=== PATIENT | male | born 1960 | race Two or more races ===

== ENCOUNTER 2016-06-19 08:34 | Inpatient (IN) | payer OTHER ==
[2016-06-19 08:42] VITALS: BMI 22.8
--- NOTE | 2016-06-19 09:09 | PDOC ---
History of Present Illness - General Chief Complaint: Chest Pain Stated Complaint: RAID RESPONSE Time Seen by Provider: 06/19/16 08:43 History Source: Patient - History of Present Illness Presenting Symptoms: Chest Pain, Dizziness Timing/Duration: reports: intermittent Severity/Quality: reports: moderate Chest Pain Radiation: reports: no radiation Past History - Past Medical History Allergies/Adverse Reactions: Allergies Allergy/AdvReac Type Severity Reaction Status Date / Time No Known Allergies Allergy Verified 06/19/16 08:36 Home Medications: Ambulatory Orders Unobtainable [Unobtainable] 06/19/16 Diabetes: Yes HTN: Yes Hypercholesterolemia: Yes - Immunization History Td Vaccination: (OVER 5 yrs) - Psycho/Social/Smoking Cessation Hx Anxiety: No Suicidal Ideation: No Smoking Status: No Smoking History: Never smoked Number of Cigarettes Smoked Daily: 0 Hx Alcohol Use: No Drug/Substance Use Hx: No Substance Use Type: None Review of Systems - Review of Systems Constitutional: No: Chills, Fever Respiratory: Yes: Shortness of Breath. No: Cough Cardiac (ROS): Yes: Chest Pain. No: Palpitations ABD/GI: No: Nausea, Vomiting Neurological: Yes: Dizziness *Physical Exam - Vital Signs Last Vital Signs Temp Pulse Resp BP Pulse Ox 97.5 F L 85 18 192/79 100 06/19/16 08:53 06/19/16 09:43 06/19/16 09:43 06/19/16 09:43 06/19/16 09:43 - Physical Exam Comments: 06/19/16 09:09 appears mildly anxious General Appearance: Yes: Appropriately Dressed HEENT: positive: Normal Voice Neck: positive: Supple Respiratory/Chest: positive: Lungs Clear, Normal Breath Sounds. negative: Respiratory Distress Cardiovascular: positive: Regular Rate, S1, S2 Gastrointestinal/Abdominal: positive: Soft. negative: Tender Extremity: positive: Normal Inspection. negative: Pedal Edema Integumentary: positive: Dry, Warm Neurologic: positive: Fully Oriented, Alert, Normal Mood/Affect Heart Score/ECG Review - History History: Highly suspicious - Electrocardiogram EKG: Normal - Age Age: 45-65 - Risk Factors Risk Factors Heart Score: Yes Hx Hypertension, Yes Hx Diabetes Based on the list above the patient has:: 1-2 risk factors - Troponin Troponin: </= normal limit - Score Heart Score - Total: 4 - ECG Intrepretation Comment:: 06/19/16 09:22 Twelve-lead EKG was performed and reviewed by me. There is normal sinus rhythm with a normal rate. The axis is normal. The intervals are normal. There are no ST or T wave abnormalities. Impression: Normal twelve-lead EKG ED Treatment Course - LABORATORY CBC & Chemistry Diagram: 06/19/16 08:40 06/19/16 08:40 - ADDITIONAL ORDERS Additional order review: Laboratory Results 06/19/16 06/19/16 06/19/16 08:40 08:40 08:40 Sodium 139 Potassium 4.6 Chloride 105 Carbon Dioxide 22 Anion Gap 12 BUN 34 H Creatinine 1.9 H Creat Clearance w eGFR 36.59 POC Glucometer Random Glucose 135 H Calcium 9.6 Total Bilirubin 0.4 AST 32 ALT 49 Alkaline Phosphatase 69 Creatine Kinase 864 H Creatine Kinase Index 1.0 CK-MB (CK-2) 8.723 H CK-MB (CK-2) Rel Index Cancelled Troponin I < 0.02 B-Natriuretic Peptide 62.37 Total Protein 7.3 Albumin 4.5 06/19/16 08:37 Sodium Potassium Chloride Carbon Dioxide Anion Gap BUN Creatinine Creat Clearance w eGFR POC Glucometer [phone] Random Glucose Calcium Total Bilirubin AST ALT Alkaline Phosphatase Creatine Kinase Creatine Kinase Index CK-MB (CK-2) CK-MB (CK-2) Rel Index Troponin I B-Natriuretic Peptide Total Protein Albumin 06/19/16 06/19/16 08:40 08:37 RBC 4.79 MCV 87.9 MCHC 33.4 RDW 14.2 MPV 9.2 Neutrophils % 72.8 Lymphocytes % 17.7 Monocytes % 8.4 Eosinophils % 0.8 Basophils % 0.3 POC Glucometer [phone] - RADIOLOGY Radiology Studies Ordered: Category Date Time Status CHEST X-RAY PORTABLE* [RAD] Stat Radiology 06/19/16 08:46 Completed - Medications Given in the ED: ED Medications Discontinued Medications Generic Name Dose Route Start Last Admin Trade Name Freq PRN Reason Stop Dose Admin Aspirin 325 mg 06/19/16 09:16 06/19/16 09:43 Asa - PO 06/19/16 09:17 325 mg ONCE ONE Administration Labetalol HCl 20 mg 06/19/16 09:21 06/19/16 09:43 Normodyne Injection - IVPUSH 06/19/16 09:22 20 mg ONCE ONE Administration Medical Decision Making - Medical Decision Making 06/19/16 09:04 56-year-old male, history of insulin-dependent diabetes, hypertension, presenting with chest pain. Patient works in the [employer] department at [employer], and states while at work this a.m. developed, non-radiating, left- sided chest pressure with an intensity of 7 out of 10 that has been intermittent w/ no exacerbating/alleviating factors. Also report numbness to LUE and ?sob and dizziness. Denies diaphoresis, nausea, vomiting, palpitations , leg pain or swelling. Patient states he's had similar pain in the past and had negative stress and cath 2 years ago at [facility]. 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 Follows up with Dr. Salomón Levin (PMD) See exam CP this am Currently resolved Appears anxious on eval and sig hypertensive Exam unremarkable otherwise R/o ACS -asa -manage BP (give home meds) -ekg -labs -cxr -dispo pending 06/19/16 10:[address] Gonzales and patient admitted to telemetry. As per M.D, Dr. Todd of cardiology should be consulted *DC/Admit/Observation/Transfer Diagnosis at time of Disposition: Chest pain Qualifiers: Chest pain type: unspecified Qualified Code(s): R07.9 - Chest pain, unspecified ARF (acute renal failure) Qualifiers: Acute renal failure type: unspecified Qualified Code(s): N17.9 - Acute kidney failure, unspecified - Discharge Dispostion Condition at time of disposition: Fair Admit: Yes Decision to Admit order Date/Time: Decision to Admit Order Category Date Time Status Decision to Admit to Hospital Routine Phy Order 06/19/16 10:19 Ordered - Referrals Referrals: Salomón Levin MD [Primary Care Provider] -
[2016-06-19 09:10] LABS: BASOPHIL 0.3 % (0-2.0); EOSINOPHIL 0.8 % (0-4.5); MCH 29.4 pg (25.7-33.7); MCHC 33.4 g/dl (32.0-35.9); MEAN CELL VOLUME 87.9 fl (80-96); MEAN PLT VOLUME 9.2 fl (7.5-11.1); NEUTROPHILS 72.8 % (42.8-82.8); PLATELET COUNT 287 K/MM3 (134-434); RDW 14.2 % (11.9-15.9); WHITE BLOOD COUNT 10.7 K/mm3 (4.0-10.0)
[2016-06-19] MEDS ORDERED: ASPIRIN 325 MG TABLET PO ONE (09:16)
[2016-06-19] MEDS ORDERED: LABETALOL HCL 5 MG/1 ML (100MG/20 ML VIAL) IVPUSH ONE (09:21)
[2016-06-19 09:24] LABS: ALBUMIN 4.5 g/dl (3.4-5.0); ANION GAP 12 (8-16); BILIRUBIN,TOTAL 0.4 mg/dL (0.2-1.0); CALCIUM 9.6 mg/dL (8.5-10.1); CO2 22 mmol/L (21-32); CREATININE 1.9 mg/dL (0.7-1.3); GLUCOSE,RANDOM 135 mg/dL (74-106); SGOT/AST 32 U/L (15-37); SGPT/ALT 49 U/L (12-78); TOT PROT 7.3 g/dl (6.4-8.2)
[2016-06-19 09:26] LABS: ALK PHOS 69 U/L (45-117); TROPONIN I < 0.02 ng/ml (0.00-0.05)
[2016-06-19] MEDS ORDERED: LABETALOL HCL 5 MG/1 ML (100MG/20 ML VIAL) ONE (09:37)
[2016-06-19] MEDS ORDERED: ASPIRIN 325 MG TABLET ONE (09:37)
[2016-06-19] MEDS ORDERED: SODIUM CHLORIDE 1,000 ML IV STA (09:43)
[2016-06-19] MEDS ORDERED: LABETALOL HCL 200 MG TABLET (FP) PO ONE (10:31)
[2016-06-19] MEDS ORDERED: LABETALOL HCL 100 MG TABLET (FP) ONE (10:43)
--- NOTE | 2016-06-19 11:28 | PN ---
Progress Note (short form) - Note Progress Note: Cardiology Consult Dictated 56M w/ DM, HTN rapid response called today in dietary for substernal chest pain. He reports 2 days of profound generalized fatigue. ECG with no acute changes. REC: Rule out acute coronary syndrome on telemetry with serial cardiac enzymes. ASA. Echo for EF assessment. Hydration, BUN and creatinine elevated in pre-renal pattern. Will start UFH gtts as we trend enzymes. Plan for ischemic evaluation prior to discharge, likely with cath when GFR stable. If enzymes +, will need to transferred on urgent basis.
[2016-06-19] MEDS ORDERED: HEPARIN NA (PORCINE) 5,000 UNITS/ML 1ML VIAL IVPUSH PRN ×2 (11:33)
--- NOTE | 2016-06-19 12:02 | CONS ---
DATE OF CONSULTATION: June 19, 2016 CARDIOLOGY CONSULTATION REQUESTING PHYSICIAN: Azul Gonzales M.D. REASON FOR CONSULTATION: Chest pain. HISTORY OF PRESENT ILLNESS: A 56-year-old male with hypertension, diabetes, and hyperlipidemia, former smoker, who developed chest pain today while at work. A rapid response was called in Dietary after the patient developed central substernal chest pressure radiating to the left arm, which lasted for approximately 5 to 10 minutes and resolved spontaneously. He is currently chest pain free and denies shortness of breath, palpitations, PND, or orthopnea. Over the last 2 days, he has felt profound exertional fatigue, but no chest pain. He reports having a cardiac angiogram several years, which was nonobstructive, and a nuclear stress test 2 years ago, which was unremarkable. Review of systems was otherwise comprehensively negative. PAST MEDICAL HISTORY: As above. 1. Insulin-dependent diabetes. 2. Hypertension. 3. Hyperlipidemia. MEDICATIONS: His home medications include: 1. Losartan 100 mg daily. 2. Lipitor 40 mg daily. 3. Norvasc 10 mg daily. 4. Lantus 45 units b.i.d. 5. Janumet. ALLERGIES: None. FAMILY HISTORY: Noncontributory. SOCIAL HISTORY: Former smoker. He works here at [employer] in [employer]. PHYSICAL EXAMINATION: Vital Signs: Afebrile with temperature of 97.5. Pulse of 83 and regular. Blood pressure on presentation to the emergency room of 192/79 and now down to 178/81 after receiving labetalol 20 mg intravenously x1 dose. Neck: No bruits. Heart: S1, S2, regular. No murmurs. Chest: Clear. Abdomen: Soft and nontender. Extremities: Warm, no edema. DIAGNOSTIC STUDIES: EKG showed normal sinus rhythm at 95 beats per minute with LVH and nonspecific ST changes. Chest x-ray was unremarkable. LABORATORY DATA: White count of 10.7, hematocrit of 42, and platelets of 287. Sodium of 139, potassium of 4.6, BUN of 34, and creatinine of 1.9. CK of 864, MB of 8.7, and troponin negative x1. BNP of 62. Upon review of previous records, there is a creatinine value from 2010 of 0.7, but none more recent than that. IMPRESSION: A 56-year-old male with multiple cardiac risk factors including diabetes, hypertension, and hyperlipidemia, with an episode of substernal chest pressure, concern for unstable angina. Presenting EKG is unremarkable. PLAN: 1. Rule out acute coronary syndrome on telemetry with serial cardiac enzymes. 2. Aspirin given. 3. Echocardiogram for ejection fraction assessment. 4. Begin home blood pressure medications, hold ARB due to CKD. Will initiate Metoprolol w/in next 24 hours (given Labetalol in ER). 5. Hydration, BUN and creatinine are elevated in a pre-renal pattern. 6. Will start unfractionated heparin drip as we trend cardiac enzymes. 7. We will plan for ischemic evaluation prior to discharge likely with cardiac catheterization when GFR is stable. 8. Initial CK elevated, TnI negative- will cycle enzymes. Elevated CK may be due to ACS as it is first to risk, although may also be non-specific and elevated due to skeletal muscle (chronic statin use). Hold statin for now pending clinical course. If enzymes are positive or if there is recurrent chest pain or EKG changes, then we will need to transfer on a more urgent basis for urgent cardiac catheterization. The above was discussed with the patient and the family. Thank you for the consultation. EVERARDO DIAZ M.D. [id number] MTDD
[2016-06-19] MEDS: HEPARIN - 25,000 UNIT in SODIUM CHLORIDE 495 ML IV SCH (12:27)
[2016-06-19] MEDS: amLODIPine BESYLATE 5 MG TABLET (FP) PO SCH (12:27)
[2016-06-19 12:55] LABS: TROPONIN I < 0.02 ng/ml (0.00-0.05)
[2016-06-19] MEDS: SODIUM CHLORIDE 1,000 ML IV SCH (13:24)
[2016-06-19] MEDS ORDERED: METOPROLOL TARTRATE 25 MG TABLET (FP) PO SCH (15:00)
[2016-06-19 16:36] LABS: CALCIUM 8.3 mg/dL (8.5-10.1); CREATININE 1.6 mg/dL (0.7-1.3)
[2016-06-19 19:34] LABS: TROPONIN I < 0.02 ng/ml (0.00-0.05)
--- NOTE | 2016-06-19 19:38 | HP ---
Admitting History and Physical - Admission Chief Complaint: Chest pain History of Present Illness: Pt is a 56-year-old male w/ a PMH significant for diabetes HTN and HLD. Pt initially presented to the ER bc of chest pain. The lt sided chest pain was nonradiating and possible associated w/ some LUE numbness. Pt denies any SOB or palpitations History Source: Patient - Past Medical History Cardiovascular: Yes: HTN, Hyperlipdemia Endocrine: Yes: Diabetes Mellitus - Past Surgical History Past Surgical History: Yes: None - Smoking History Smoking history: Never smoked Have you smoked in the past 12 months: No Aproximately how many cigarettes per day: 0 - Alcohol/Substance Use Hx Alcohol Use: No Home Medications - Allergies Allergies/Adverse Reactions: Allergies Allergy/AdvReac Type Severity Reaction Status Date / Time No Known Allergies Allergy Verified 07/13/16 07:17 - Home Medications Home Medications: Ambulatory Orders Aspirin [ASA -] 81 mg PO DAILY #0 tab.chew 06/23/16 Insulin (Levemir) [Levemir Vial] 45 units SQ BID@0700,2200 #0 ml 06/23/16 Isosorbide Mononitrate [Imdur -] 30 mg PO DAILY #0 tab.sr.24h 06/23/16 Metoprolol Succinate [Toprol XL -] 50 mg PO DAILY #0 tab.sr.24h 06/23/16 Oxycodone HCl/Acetaminophen [Percocet 5-325 mg Tablet] 1 - 2 tab PO Q6H PRN #12 tab MDD 4 07/12/16 Cyclobenzaprine HCl [Flexeril -] 10 mg PO TID #9 tablet 07/13/16 Ibuprofen [Motrin -] 800 mg PO Q6H #30 tablet 07/13/16 Nifedipine [Nifedical Xl] 60 mg PO DAILY 07/13/16 Family Disease History - Family Disease History Family History: Unremarkable Review of Systems - Review of Systems Constitutional: reports: No Symptoms Eyes: reports: No Symptoms HENT: reports: No Symptoms Neck: reports: No Symptoms Cardiovascular: reports: Chest Pain Respiratory: reports: No Symptoms Gastrointestinal: reports: No Symptoms Genitourinary: reports: No Symptoms Physical Examination Vital Signs: Vital Signs Temperature 98.2 F 06/19/16 16:55 Pulse Rate 76 06/19/16 16:55 Respiratory Rate 18 06/19/16 16:55 Blood Pressure 154/82 06/19/16 16:55 O2 Sat by Pulse Oximetry (%) 100 06/19/16 16:41 Constitutional: Yes: No Distress Eyes: Yes: WNL HENT: Yes: WNL Neck: Yes: Supple Cardiovascular: Yes: WNL, Regular Rate and Rhythm Respiratory: Yes: WNL, Regular, CTA Bilaterally Gastrointestinal: Yes: WNL, Normal Bowel Sounds, Soft Musculoskeletal: Yes: WNL Extremities: Yes: WNL Edema: No Neurological: Yes: WNL, Alert, Oriented ...Motor Strength: WNL Labs: CBC, BMP 06/19/16 15:15 Problem List - Problems (1) Chest pain Assessment/Plan: As per cardio Cont IV heparin/asa Code(s): R07.9 - CHEST PAIN, UNSPECIFIED Qualifiers: Chest pain type: unspecified Qualified Code(s): R07.9 - Chest pain, unspecified (2) Diabetes Code(s): E11.9 - TYPE 2 DIABETES MELLITUS WITHOUT COMPLICATIONS (3) HLD (hyperlipidemia) Code(s): E78.5 - HYPERLIPIDEMIA, UNSPECIFIED (4) HTN (hypertension) Code(s): I10 - ESSENTIAL (PRIMARY) HYPERTENSION
[2016-06-20] MEDS: SODIUM CHLORIDE 1,000 ML IV SCH (02:37)
[2016-06-20] MEDS: INSULIN SLIDING SCALE (NOVOLOG) 1 VIAL SQ SCH ×4 (06:13→21:29)
[2016-06-20] MEDS: INSULIN DETEMIR 100 UNITS/ML MDV SQ SCH ×2 (06:14→21:28)
[2016-06-20 07:39] LABS: BASOPHIL 0.4 % (0-2.0); EOSINOPHIL 2.6 % (0-4.5); MCH 29.8 pg (25.7-33.7); MCHC 33.9 g/dl (32.0-35.9); MEAN PLT VOLUME 9.3 fl (7.5-11.1); NEUTROPHILS 70.7 % (42.8-82.8); PLATELET COUNT 211 K/MM3 (134-434); RDW 14.1 % (11.9-15.9); WHITE BLOOD COUNT 7.2 K/mm3 (4.0-10.0)
[2016-06-20] MEDS: amLODIPine BESYLATE 5 MG TABLET (FP) PO SCH (09:00)
[2016-06-20] MEDS: ASPIRIN 81 MG CHEWABLE TABLETS PO SCH (09:00)
[2016-06-20 09:15] LABS: INR 0.96 (0.82-1.09); PROTHROMBIN TIME (PATIENT) 10.6 SEC (9.98-11.88)
[2016-06-20] MEDS ORDERED: METOPROLOL TARTRATE 25 MG TABLET (FP) PO SCH (10:00)
[2016-06-20] MEDS ORDERED: PT OWN MED DRAWER 7, Y5N ONE (10:23)
[2016-06-20] MEDS ORDERED: ACETAMINOPHEN 325 MG TABLET (FP) PO PRN (10:52)
[2016-06-20] MEDS: HEPARIN - 25,000 UNIT in SODIUM CHLORIDE 495 ML IV SCH (12:09)
[2016-06-20 12:14] LABS: ALBUMIN 3.4 g/dl (3.4-5.0); ALK PHOS 54 U/L (45-117); ANION GAP 7 (8-16); BILIRUBIN,TOTAL 0.4 mg/dL (0.2-1.0); CALCIUM 8.5 mg/dL (8.5-10.1); CO2 21 mmol/L (21-32); CREATININE 1.5 mg/dL (0.7-1.3); GLUCOSE,RANDOM 96 mg/dL (74-106); SGOT/AST 18 U/L (15-37); SGPT/ALT 33 U/L (12-78); TOT PROT 5.7 g/dl (6.4-8.2); TROPONIN I < 0.02 ng/ml (0.00-0.05)
--- NOTE | 2016-06-20 14:11 | PN ---
Progress Note, Physician Chief Complaint: Pt A&Ox3; had chest discomfort (moderate diffuse chest tightness) this morning for about 10 minutes; it went away on its own. History of Present Illness: 56M w/ DM, HTN rapid response called in dietary for substernal chest pain--> admission. He reports 2 days of profound generalized fatigue. ECG with no acute changes. - Current Medication List Current Medications: Active Medications Acetaminophen (Tylenol -) 650 mg PO Q6H PRN PRN Reason: FEVER OR PAIN Last Admin: 06/20/16 13:38 Dose: 650 mg Amlodipine Besylate (Norvasc -) 5 mg PO DAILY [facility] Last Admin: 06/20/16 09:00 Dose: 5 mg Aspirin (Asa -) 81 mg PO DAILY [facility] Last Admin: 06/20/16 09:00 Dose: 81 mg Heparin Sodium (Porcine) (Heparin -) 1,000 unit IVPUSH PRN PRN PRN Reason: Heparin Heparin Sodium (Porcine) (Heparin -) 5,000 unit IVPUSH PRN PRN PRN Reason: Heparin Heparin Sodium (Porcine) 25, (000 unit/ Sodium Chloride) 500 mls @ 18 mls/hr IV TITR BEL; 900 UNIT/HR PRN Reason: Protocol Last Admin: 06/20/16 12:09 Dose: 17 mls/hr Insulin Aspart (Novolog Vial Sliding Scale -) 1 vial SQ ACHS BEL PRN Reason: Protocol Last Admin: 06/20/16 12:09 Dose: Not Given Insulin Detemir (Levemir Vial) 45 units SQ BID@0700,2200 [facility] Last Admin: 06/20/16 06:14 Dose: 45 units Metoprolol Tartrate (Lopressor -) 25 mg PO DAILY [facility] Last Admin: 06/20/16 09:00 Dose: 25 mg - Objective Vital Signs: Vital Signs Temperature 97.5 F L 06/20/16 08:55 Pulse Rate 81 06/20/16 08:55 Respiratory Rate 18 06/20/16 09:00 Blood Pressure 153/84 06/20/16 08:55 O2 Sat by Pulse Oximetry (%) 98 06/20/16 09:00 Constitutional: Yes: Calm Eyes: Yes: WNL HENT: Yes: WNL Neck: Yes: WNL Cardiovascular: Yes: WNL Respiratory: Yes: WNL Gastrointestinal: Yes: Soft ...Rectal Exam: Yes: Deferred Genitourinary: No: Anuria Breast(s): Yes: WNL Musculoskeletal: Yes: WNL Extremities: Yes: WNL Edema: No Peripheral Pulses WNL: Yes Integumentary: Yes: WNL Neurological: Yes: WNL ...Motor Strength: WNL Psychiatric: Yes: WNL Labs: CBC, BMP 06/20/16 06:00 06/20/16 06:00 INR, PTT INR 0.96 (0.82-1.09) 06/20/16 08:40 - ....Imaging EKG: Image Reviewed (NSR; LVH) Problem List - Problems (1) ARF (acute renal failure) Assessment/Plan: BUN/Cr improving. Continue PO and IV fluids. Normal LVEF by ECHO. Code(s): N17.9 - ACUTE KIDNEY FAILURE, UNSPECIFIED Qualifiers: Acute renal failure type: unspecified Qualified Code(s): N17.9 - Acute kidney failure, unspecified (2) Chest pain Assessment/Plan: TNI < 0.02 x 2. EKG: NSR; LVH. NTG 0.4 mg sl prn for chest pain. BP control. For coronary artery evaluation. Code(s): R07.9 - CHEST PAIN, UNSPECIFIED Qualifiers: Chest pain type: unspecified Qualified Code(s): R07.9 - Chest pain, unspecified (3) Diabetes Assessment/Plan: Consider ACEI (DM; HTN) if renal status stabilizes. Code(s): E11.9 - TYPE 2 DIABETES MELLITUS WITHOUT COMPLICATIONS (4) HTN (hypertension) Assessment/Plan: Change to metoprolol ER for better 24 hours coverage; increase dose as needed. If renal functiion improves, start ACEI (HTN; DM; ACS; CHF). Code(s): I10 - ESSENTIAL (PRIMARY) HYPERTENSION
[2016-06-20] MEDS: METOPROLOL SUCCINATE 25 MG TAB.SR.24H (FP) PO SCH (14:59)
--- NOTE | 2016-06-20 16:18 | EKG ---
Test Reason : Blood Pressure : / mmHG Vent. Rate : 077 BPM Atrial Rate : 077 BPM P-R Int : 136 ms QRS Dur : 086 ms QT Int : 386 ms P-R-T Axes : 061 030 024 degrees QTc Int : 436 ms NORMAL SINUS RHYTHM MODERATE VOLTAGE CRITERIA FOR LVH, MAY BE NORMAL VARIANT BORDERLINE ECG WHEN COMPARED WITH ECG OF 19-JUN-2016 08:37, NONSPECIFIC T WAVE ABNORMALITY NOW EVIDENT IN INFERIOR LEADS Confirmed by PHILIPP ESQUIVEL, NELLIE ([id number]) on 06/20/2016 4:18:09 PM Referred By: Andrew THAO Confirmed By:NELLIE SEGAL MD
[2016-06-20] MEDS: NITROGLYCERIN SUBLINGUAL 1/150 0.4 MG TAB SL PRN ×2 (17:25→17:32)
[2016-06-20 19:56] LABS: THYROID STIMULATING HORMONE 0.47 uIU/ml (0.358-3.74)
--- NOTE | 2016-06-20 21:39 | PN ---
Progress Note, Physician History of Present Illness: No new change - Current Medication List Current Medications: Active Medications Acetaminophen (Tylenol -) 650 mg PO Q6H PRN PRN Reason: FEVER OR PAIN Last Admin: 06/20/16 13:38 Dose: 650 mg Amlodipine Besylate (Norvasc -) 5 mg PO DAILY [facility] Last Admin: 06/20/16 09:00 Dose: 5 mg Aspirin (Asa -) 81 mg PO DAILY [facility] Last Admin: 06/20/16 09:00 Dose: 81 mg Heparin Sodium (Porcine) (Heparin -) 1,000 unit IVPUSH PRN PRN PRN Reason: Heparin Heparin Sodium (Porcine) (Heparin -) 5,000 unit IVPUSH PRN PRN PRN Reason: Heparin Heparin Sodium (Porcine) 25, (000 unit/ Sodium Chloride) 500 mls @ 18 mls/hr IV TITR BEL; 900 UNIT/HR PRN Reason: Protocol Last Admin: 06/20/16 12:09 Dose: 17 mls/hr Insulin Aspart (Novolog Vial Sliding Scale -) 1 vial SQ ACHS [facility] PRN Reason: Protocol Last Admin: 06/20/16 21:29 Dose: Not Given Insulin Detemir (Levemir Vial) 45 units SQ BID@0700,2200 [facility] Last Admin: 06/20/16 21:28 Dose: Not Given Metoprolol Succinate (Toprol Xl -) 25 mg PO DAILY [facility] Last Admin: 06/20/16 14:59 Dose: 25 mg Nitroglycerin (Nitrostat -) 0.4 mg SL Q5M PRN PRN Reason: FOR CHEST PAIN Last Admin: 06/20/16 17:32 Dose: 0.4 mg - Objective Vital Signs: Vital Signs Temperature 98.1 F 06/20/16 15:08 Pulse Rate 73 06/20/16 15:08 Respiratory Rate 18 06/20/16 15:08 Blood Pressure 138/78 06/20/16 15:08 O2 Sat by Pulse Oximetry (%) 98 06/20/16 09:00 Neck: Yes: Supple Cardiovascular: Yes: WNL, Regular Rate and Rhythm Respiratory: Yes: WNL, Regular, CTA Bilaterally Gastrointestinal: Yes: WNL, Normal Bowel Sounds, Soft Labs: CBC, BMP 06/20/16 06:00 06/20/16 06:00 INR, PTT INR 0.96 (0.82-1.09) 06/20/16 08:40 Problem List - Problems (1) ARF (acute renal failure) Code(s): N17.9 - ACUTE KIDNEY FAILURE, UNSPECIFIED Qualifiers: Acute renal failure type: unspecified Qualified Code(s): N17.9 - Acute kidney failure, unspecified (2) Chest pain Code(s): R07.9 - CHEST PAIN, UNSPECIFIED Qualifiers: Chest pain type: unspecified Qualified Code(s): R07.9 - Chest pain, unspecified (3) Diabetes Code(s): E11.9 - TYPE 2 DIABETES MELLITUS WITHOUT COMPLICATIONS (4) HTN (hypertension) Code(s): I10 - ESSENTIAL (PRIMARY) HYPERTENSION
[2016-06-21] MEDS: INSULIN SLIDING SCALE (NOVOLOG) 1 VIAL SQ SCH ×4 (06:10→21:42)
[2016-06-21] MEDS: INSULIN DETEMIR 100 UNITS/ML MDV SQ SCH ×2 (06:10→21:19)
[2016-06-21 06:33] LABS: MCH 29.8 pg (25.7-33.7); MCHC 33.7 g/dl (32.0-35.9); MEAN CELL VOLUME 88.3 fl (80-96); MEAN PLT VOLUME 9.1 fl (7.5-11.1); PLATELET COUNT 212 K/MM3 (134-434); WHITE BLOOD COUNT 6.6 K/mm3 (4.0-10.0)
[2016-06-21] MEDS: amLODIPine BESYLATE 5 MG TABLET (FP) PO SCH (09:51)
[2016-06-21] MEDS: METOPROLOL SUCCINATE 25 MG TAB.SR.24H (FP) PO SCH (09:51)
[2016-06-21] MEDS: ASPIRIN 81 MG CHEWABLE TABLETS PO SCH (09:51)
[2016-06-21] MEDS: HEPARIN - 25,000 UNIT in SODIUM CHLORIDE 495 ML IV SCH (11:49)
--- NOTE | 2016-06-21 22:39 | PN ---
Progress Note, Physician History of Present Illness: No chest pain today - Current Medication List Current Medications: Active Medications Acetaminophen (Tylenol -) 650 mg PO Q6H PRN PRN Reason: FEVER OR PAIN Last Admin: 06/20/16 13:38 Dose: 650 mg Amlodipine Besylate (Norvasc -) 5 mg PO DAILY [facility] Last Admin: 06/21/16 09:51 Dose: 5 mg Aspirin (Asa -) 81 mg PO DAILY [facility] Last Admin: 06/21/16 09:51 Dose: 81 mg Heparin Sodium (Porcine) (Heparin -) 1,000 unit IVPUSH PRN PRN PRN Reason: Heparin Heparin Sodium (Porcine) (Heparin -) 5,000 unit IVPUSH PRN PRN PRN Reason: Heparin Heparin Sodium (Porcine) 25, (000 unit/ Sodium Chloride) 500 mls @ 18 mls/hr IV TITR BEL; 900 UNIT/HR PRN Reason: Protocol Last Admin: 06/21/16 11:49 Dose: 17 mls/hr Insulin Aspart (Novolog Vial Sliding Scale -) 1 vial SQ ACHS [facility] PRN Reason: Protocol Last Admin: 06/21/16 21:42 Dose: 2 units Insulin Detemir (Levemir Vial) 45 units SQ BID@0700,2200 [facility] Last Admin: 06/21/16 21:19 Dose: Not Given Metoprolol Succinate (Toprol Xl -) 25 mg PO DAILY [facility] Last Admin: 06/21/16 09:51 Dose: 25 mg Nitroglycerin (Nitrostat -) 0.4 mg SL Q5M PRN PRN Reason: FOR CHEST PAIN Last Admin: 06/20/16 17:32 Dose: 0.4 mg - Objective Vital Signs: Vital Signs Temperature 98.1 F 06/21/16 18:35 Pulse Rate 82 06/21/16 19:14 Respiratory Rate 18 06/21/16 19:14 Blood Pressure 161/84 06/21/16 19:14 O2 Sat by Pulse Oximetry (%) 98 06/21/16 09:00 Neck: Yes: Supple Cardiovascular: Yes: WNL, Regular Rate and Rhythm Respiratory: Yes: WNL, Regular, CTA Bilaterally Gastrointestinal: Yes: WNL, Normal Bowel Sounds, Soft Extremities: Yes: WNL Edema: No Labs: CBC, BMP 06/21/16 06:00 06/20/16 06:00 INR, PTT INR 0.96 (0.82-1.09) 06/20/16 08:40 Problem List - Problems (1) Chest pain Assessment/Plan: As per cardio Cont IV heparin/asa Code(s): R07.9 - CHEST PAIN, UNSPECIFIED Qualifiers: Chest pain type: unspecified Qualified Code(s): R07.9 - Chest pain, unspecified (2) ARF (acute renal failure) Assessment/Plan: Check labs in am Code(s): N17.9 - ACUTE KIDNEY FAILURE, UNSPECIFIED Qualifiers: Acute renal failure type: unspecified Qualified Code(s): N17.9 - Acute kidney failure, unspecified (3) Diabetes Code(s): E11.9 - TYPE 2 DIABETES MELLITUS WITHOUT COMPLICATIONS (4) HTN (hypertension) Code(s): I10 - ESSENTIAL (PRIMARY) HYPERTENSION
[2016-06-21] MEDS ORDERED: METOPROLOL SUCCINATE 25 MG TAB.SR.24H (FP) PO ONE (23:00)
--- NOTE | 2016-06-22 01:29 | PN ---
Progress Note, Physician Chief Complaint: Pt A&Ox3; asked for sl NTG once last night for chest discomfort. History of Present Illness: 56M w/ DM, HTN rapid response called in dietary for substernal chest pain--> admission. He reports 2 days of profound generalized fatigue. ECG with no acute changes. - Current Medication List Current Medications: Active Medications Acetaminophen (Tylenol -) 650 mg PO Q6H PRN PRN Reason: FEVER OR PAIN Last Admin: 06/20/16 13:38 Dose: 650 mg Amlodipine Besylate (Norvasc -) 5 mg PO DAILY [facility] Last Admin: 06/21/16 09:51 Dose: 5 mg Aspirin (Asa -) 81 mg PO DAILY [facility] Last Admin: 06/21/16 09:51 Dose: 81 mg Heparin Sodium (Porcine) (Heparin -) 1,000 unit IVPUSH PRN PRN PRN Reason: Heparin Heparin Sodium (Porcine) (Heparin -) 5,000 unit IVPUSH PRN PRN PRN Reason: Heparin Heparin Sodium (Porcine) 25, (000 unit/ Sodium Chloride) 500 mls @ 18 mls/hr IV TITR BEL; 900 UNIT/HR PRN Reason: Protocol Last Admin: 06/21/16 11:49 Dose: 17 mls/hr Insulin Aspart (Novolog Vial Sliding Scale -) 1 vial SQ ACHS [facility] PRN Reason: Protocol Last Admin: 06/21/16 21:42 Dose: 2 units Insulin Detemir (Levemir Vial) 45 units SQ BID@0700,2200 [facility] Last Admin: 06/21/16 21:19 Dose: Not Given Metoprolol Succinate (Toprol Xl -) 50 mg PO DAILY [facility] Nitroglycerin (Nitrostat -) 0.4 mg SL Q5M PRN PRN Reason: FOR CHEST PAIN Last Admin: 06/20/16 17:32 Dose: 0.4 mg - Objective Vital Signs: Vital Signs Temperature 98.1 F 06/21/16 18:35 Pulse Rate 82 06/21/16 19:14 Respiratory Rate 18 06/21/16 19:14 Blood Pressure 161/84 06/21/16 19:14 O2 Sat by Pulse Oximetry (%) 98 06/21/16 09:00 Constitutional: Yes: Calm Eyes: Yes: WNL HENT: Yes: WNL Neck: Yes: WNL Cardiovascular: Yes: WNL Respiratory: Yes: WNL Gastrointestinal: Yes: WNL ...Rectal Exam: Yes: Deferred Genitourinary: No: Anuria Breast(s): Yes: WNL Musculoskeletal: Yes: WNL Extremities: Yes: WNL Edema: No Peripheral Pulses WNL: Yes Integumentary: Yes: WNL Neurological: Yes: WNL ...Motor Strength: WNL Psychiatric: Yes: WNL Labs: CBC, BMP 06/21/16 06:00 06/20/16 06:00 INR, PTT INR 0.96 (0.82-1.09) 06/20/16 08:40 Abnormal Lab Results 06/21/16 06:00 PTT (Actin FS) 64.3 H Problem List - Problems (1) ARF (acute renal failure) Assessment/Plan: Continue PO and IV fluids. F/u Is and Os, BUN/Cr. Code(s): N17.9 - ACUTE KIDNEY FAILURE, UNSPECIFIED Qualifiers: Acute renal failure type: unspecified Qualified Code(s): N17.9 - Acute kidney failure, unspecified (2) Chest pain Assessment/Plan: TNI < 0.02 x 2. EKG: NSR; LVH. NTG 0.4 mg sl prn for chest pain; consider starting Imdur 30 mg daily. BP control. For coronary artery evaluation. Code(s): R07.9 - CHEST PAIN, UNSPECIFIED Qualifiers: Chest pain type: unspecified Qualified Code(s): R07.9 - Chest pain, unspecified (3) Diabetes Assessment/Plan: Consider ACEI (DM; HTN) if renal status stabilizes. Code(s): E11.9 - TYPE 2 DIABETES MELLITUS WITHOUT COMPLICATIONS (4) HTN (hypertension) Assessment/Plan: Change to metoprolol ER for better 24 hours coverage; increase dose as needed. If renal function improves, start ACEI (HTN; DM; ACS; CHF). Code(s): I10 - ESSENTIAL (PRIMARY) HYPERTENSION
[2016-06-22] MEDS: INSULIN DETEMIR 100 UNITS/ML MDV SQ SCH ×2 (06:10→21:33)
[2016-06-22] MEDS: INSULIN SLIDING SCALE (NOVOLOG) 1 VIAL SQ SCH ×4 (06:14→21:32)
[2016-06-22 08:09] LABS: BASOPHIL 0.3 % (0-2.0); EOSINOPHIL 2.6 % (0-4.5); MCH 29.7 pg (25.7-33.7); MCHC 34.3 g/dl (32.0-35.9); MEAN CELL VOLUME 86.8 fl (80-96); MEAN PLT VOLUME 9.1 fl (7.5-11.1); NEUTROPHILS 64.5 % (42.8-82.8); PLATELET COUNT 218 K/MM3 (134-434); RDW 13.7 % (11.9-15.9); WHITE BLOOD COUNT 6.2 K/mm3 (4.0-10.0)
[2016-06-22 08:39] LABS: ALBUMIN 3.5 g/dl (3.4-5.0); BILIRUBIN,TOTAL 0.4 mg/dL (0.2-1.0); CALCIUM 8.8 mg/dL (8.5-10.1); CREATININE 1.4 mg/dL (0.7-1.3); TOT PROT 6.1 g/dl (6.4-8.2)
[2016-06-22] MEDS: ASPIRIN 81 MG CHEWABLE TABLETS PO SCH (08:59)
[2016-06-22] MEDS ORDERED: NIFEdipine E.R. 30 MG TABLET (FP) PO SCH (09:00)
[2016-06-22] MEDS: METOPROLOL SUCCINATE 50 MG TAB.SR.24H (FP) PO SCH (09:14)
[2016-06-22] MEDS: ISOSORBIDE MONONITRATE 30 MG TAB.SR.24H (FP) PO SCH (09:14)
--- NOTE | 2016-06-22 10:37 | PN ---
Progress Note, Physician History of Present Illness: seen and examined today in [facility]. intermittent episodes of chest pain over the weekend, improved with NTG. - Current Medication List Current Medications: Active Medications Acetaminophen (Tylenol -) 650 mg PO Q6H PRN PRN Reason: FEVER OR PAIN Last Admin: 06/20/16 13:38 Dose: 650 mg Aspirin (Asa -) 81 mg PO DAILY [facility] Last Admin: 06/22/16 08:59 Dose: 81 mg Heparin Sodium (Porcine) (Heparin -) 1,000 unit IVPUSH PRN PRN PRN Reason: Heparin Heparin Sodium (Porcine) (Heparin -) 5,000 unit IVPUSH PRN PRN PRN Reason: Heparin Heparin Sodium (Porcine) 25, (000 unit/ Sodium Chloride) 500 mls @ 18 mls/hr IV TITR BEL; 900 UNIT/HR PRN Reason: Protocol Last Admin: 06/21/16 11:49 Dose: 17 mls/hr Insulin Aspart (Novolog Vial Sliding Scale -) 1 vial SQ ACHS [facility] PRN Reason: Protocol Last Admin: 06/22/16 06:14 Dose: 2 units Insulin Detemir (Levemir Vial) 45 units SQ BID@0700,2200 [facility] Last Admin: 06/22/16 06:10 Dose: Not Given Isosorbide Mononitrate (Imdur -) 30 mg PO DAILY [facility] Last Admin: 06/22/16 09:14 Dose: 30 mg Metoprolol Succinate (Toprol Xl -) 50 mg PO DAILY [facility] Last Admin: 06/22/16 09:14 Dose: 50 mg Nifedipine (Procardia Xl -) 30 mg PO DAILY [facility] Last Admin: 06/22/16 08:59 Dose: 30 mg Nitroglycerin (Nitrostat -) 0.4 mg SL Q5M PRN PRN Reason: FOR CHEST PAIN Last Admin: 06/20/16 17:32 Dose: 0.4 mg - Objective Vital Signs: Vital Signs Temperature 97.7 F 06/22/16 02:07 Pulse Rate 68 06/22/16 02:07 Respiratory Rate 18 06/22/16 02:07 Blood Pressure 148/73 06/22/16 02:07 O2 Sat by Pulse Oximetry (%) 98 06/21/16 21:00 Constitutional: Yes: Well Nourished, No Distress, Calm Eyes: Yes: WNL, Conjunctiva Clear, EOM Intact, PERRL HENT: Yes: WNL, Atraumatic, Normocephalic Neck: Yes: WNL, Supple, Trachea Midline Cardiovascular: Yes: WNL, Regular Rate and Rhythm, S1, S2. No: Bradycardia, Tachycardia, Pulse Irregular, Bruit, JVD, Gallop, Murmur, Rub, S3, S4, Varicosities Respiratory: Yes: WNL, Regular, CTA Bilaterally. No: Rales, Rhonchi, Wheezes Gastrointestinal: Yes: WNL, Normal Bowel Sounds, Soft. No: Distention, Tenderness Musculoskeletal: Yes: WNL Extremities: Yes: WNL Edema: No Peripheral Pulses WNL: Yes Peripheral Pulses: Left Doralis Pedis: 2+, Right Dorsalis Pedis: 2+ Integumentary: Yes: WNL Neurological: Yes: WNL, Alert, Oriented, Cran Nerves II-XII Intact ...Motor Strength: WNL Psychiatric: Yes: WNL, Alert, Oriented Labs: CBC, BMP 06/22/16 07:08 06/22/16 07:08 INR, PTT INR 0.96 (0.82-1.09) 06/20/16 08:40 - ....Imaging Chest X-ray: Report Reviewed, Image Reviewed EKG: Report Reviewed, Image Reviewed Other: Report Reviewed, Image Reviewed (tele-nsr, no events recorded) Problem List - Problems (1) ARF (acute renal failure) Code(s): N17.9 - ACUTE KIDNEY FAILURE, UNSPECIFIED Qualifiers: Acute renal failure type: unspecified Qualified Code(s): N17.9 - Acute kidney failure, unspecified (2) Chest pain Code(s): R07.9 - CHEST PAIN, UNSPECIFIED Qualifiers: Chest pain type: unspecified Qualified Code(s): R07.9 - Chest pain, unspecified (3) Diabetes Code(s): E11.9 - TYPE 2 DIABETES MELLITUS WITHOUT COMPLICATIONS (4) HTN (hypertension) Code(s): I10 - ESSENTIAL (PRIMARY) HYPERTENSION (5) HLD (hyperlipidemia) Code(s): E78.5 - HYPERLIPIDEMIA, UNSPECIFIED (6) Unstable angina Code(s): I20.0 - UNSTABLE ANGINA Assessment/Plan 56 year old man with a history of HTN, DMII, HLD admitted with episodes of chest pain and generalized fatigue. Chest pain-concerning for unstable angina -responded to NTG SL -cardiac enzymes wnl -echo showed normal LV systolic function, mild mr, mild tr, mild conc LVH -as he still has intermittent episodes of chest pain will cont heparin gtt for now -creat has trended down -plan for transfer for cardiac cath tomorrow am to [facility] -holding metformin for upcoming cath -cont ASA 81mg daily -will load plavix 300mg x 1 then cont 75mg daily -start statin -cont toprol xl 50mg daily -start Imdur 30mg daily HTN-above goal -cont toprol xl 50mg daily -change amlodipine to nifedipine xl 30mg daily and uptitrate as needed -avoid SABRINA-I/ARB and HCTZ for now given elevated creatinine on admission and concern for intravascular depletion as source
[2016-06-22] MEDS ORDERED: CLOPIDOGREL BISULFATE 300 MG TABLET PO ONE (11:00)
[2016-06-22] MEDS ORDERED: INSULIN (NOVOLOG) ASPART 100 UNITS/ML 10ML VIAL ONE (11:29)
[2016-06-22] MEDS: HEPARIN - 25,000 UNIT in SODIUM CHLORIDE 495 ML IV SCH (11:45)
--- NOTE | 2016-06-22 20:01 | PN ---
Progress Note, Physician History of Present Illness: No NEW COMPLAINTS - Current Medication List Current Medications: Active Medications Acetaminophen (Tylenol -) 650 mg PO Q6H PRN PRN Reason: FEVER OR PAIN Last Admin: 06/20/16 13:38 Dose: 650 mg Aspirin (Asa -) 81 mg PO DAILY [facility] Last Admin: 06/22/16 08:59 Dose: 81 mg Atorvastatin Calcium (Lipitor -) 80 mg PO HS [facility] Clopidogrel Bisulfate (Plavix -) 75 mg PO DAILY [facility] Heparin Sodium (Porcine) (Heparin -) 1,000 unit IVPUSH PRN PRN PRN Reason: Heparin Heparin Sodium (Porcine) (Heparin -) 5,000 unit IVPUSH PRN PRN PRN Reason: Heparin Heparin Sodium (Porcine) 25, (000 unit/ Sodium Chloride) 500 mls @ 18 mls/hr IV TITR BEL; 900 UNIT/HR PRN Reason: Protocol Last Admin: 06/22/16 11:45 Dose: 17 mls/hr Insulin Aspart (Novolog Vial Sliding Scale -) 1 vial SQ ACHS [facility] PRN Reason: Protocol Last Admin: 06/22/16 17:18 Dose: 6 units Insulin Detemir (Levemir Vial) 45 units SQ BID@0700,2200 [facility] Last Admin: 06/22/16 06:10 Dose: Not Given Isosorbide Mononitrate (Imdur -) 30 mg PO DAILY [facility] Last Admin: 06/22/16 09:14 Dose: 30 mg Metoprolol Succinate (Toprol Xl -) 50 mg PO DAILY [facility] Last Admin: 06/22/16 09:14 Dose: 50 mg Nifedipine (Procardia Xl -) 30 mg PO BID [facility] Nitroglycerin (Nitrostat -) 0.4 mg SL Q5M PRN PRN Reason: FOR CHEST PAIN Last Admin: 06/20/16 17:32 Dose: 0.4 mg - Objective Vital Signs: Vital Signs Temperature 97.9 F 06/22/16 15:00 Pulse Rate 74 06/22/16 15:00 Respiratory Rate 18 06/22/16 15:00 Blood Pressure 130/77 06/22/16 15:00 O2 Sat by Pulse Oximetry (%) 98 06/22/16 10:00 Cardiovascular: Yes: WNL, Regular Rate and Rhythm Respiratory: Yes: WNL, Regular, CTA Bilaterally Gastrointestinal: Yes: WNL, Normal Bowel Sounds, Soft Labs: CBC, BMP 06/22/16 07:08 06/22/16 07:08 INR, PTT INR 0.96 (0.82-1.09) 06/20/16 08:40 Problem List - Problems (1) Chest pain Assessment/Plan: As per cardio Cont IV heparin/asa Code(s): R07.9 - CHEST PAIN, UNSPECIFIED Qualifiers: Chest pain type: unspecified Qualified Code(s): R07.9 - Chest pain, unspecified (2) ARF (acute renal failure) Code(s): N17.9 - ACUTE KIDNEY FAILURE, UNSPECIFIED Qualifiers: Acute renal failure type: unspecified Qualified Code(s): N17.9 - Acute kidney failure, unspecified (3) Diabetes Code(s): E11.9 - TYPE 2 DIABETES MELLITUS WITHOUT COMPLICATIONS (4) HTN (hypertension) Code(s): I10 - ESSENTIAL (PRIMARY) HYPERTENSION
[2016-06-22] MEDS: NIFEdipine E.R. 30 MG TABLET (FP) PO SCH (21:34)
[2016-06-22] MEDS ORDERED: ATORVASTATIN CA 80 MG TABLET (FP) PO SCH (22:00)
[2016-06-23 07:13] LABS: MCH 29.7 pg (25.7-33.7); MCHC 34.3 g/dl (32.0-35.9); MEAN CELL VOLUME 86.6 fl (80-96); MEAN PLT VOLUME 9.1 fl (7.5-11.1); PLATELET COUNT 194 K/MM3 (134-434); RDW 13.7 % (11.9-15.9); WHITE BLOOD COUNT 6.7 K/mm3 (4.0-10.0)
[2016-06-23] MEDS: ISOSORBIDE MONONITRATE 30 MG TAB.SR.24H (FP) PO SCH (09:16)
[2016-06-23] MEDS: METOPROLOL SUCCINATE 50 MG TAB.SR.24H (FP) PO SCH (09:16)
[2016-06-23] MEDS: NIFEdipine E.R. 30 MG TABLET (FP) PO SCH (09:16)
[2016-06-23] MEDS: ASPIRIN 81 MG CHEWABLE TABLETS PO SCH (09:16)
[2016-06-23] MEDS: INSULIN SLIDING SCALE (NOVOLOG) 1 VIAL SQ SCH ×3 (09:39→16:43)
[2016-06-23] MEDS: INSULIN DETEMIR 100 UNITS/ML MDV SQ SCH (09:39)
--- NOTE | 2016-06-23 09:57 | PN ---
Progress Note, Physician Chief Complaint: still having chest discomfort: describes 06/16 Remains on heparin - Current Medication List Current Medications: Active Medications Acetaminophen (Tylenol -) 650 mg PO Q6H PRN PRN Reason: FEVER OR PAIN Last Admin: 06/20/16 13:38 Dose: 650 mg Aspirin (Asa -) 81 mg PO DAILY [facility] Last Admin: 06/23/16 09:16 Dose: 81 mg Atorvastatin Calcium (Lipitor -) 80 mg PO HS [facility] Last Admin: 06/22/16 21:32 Dose: 80 mg Clopidogrel Bisulfate (Plavix -) 75 mg PO DAILY [facility] Last Admin: 06/23/16 09:16 Dose: 75 mg Heparin Sodium (Porcine) (Heparin -) 1,000 unit IVPUSH PRN PRN PRN Reason: Heparin Heparin Sodium (Porcine) (Heparin -) 5,000 unit IVPUSH PRN PRN PRN Reason: Heparin Heparin Sodium (Porcine) 25, (000 unit/ Sodium Chloride) 500 mls @ 18 mls/hr IV TITR BEL; 900 UNIT/HR PRN Reason: Protocol Last Admin: 06/22/16 11:45 Dose: 17 mls/hr Insulin Aspart (Novolog Vial Sliding Scale -) 1 vial SQ ACHS [facility] PRN Reason: Protocol Last Admin: 06/23/16 09:39 Dose: Not Given Insulin Detemir (Levemir Vial) 45 units SQ BID@0700,2200 [facility] Last Admin: 06/23/16 09:39 Dose: Not Given Isosorbide Mononitrate (Imdur -) 30 mg PO DAILY [facility] Last Admin: 06/23/16 09:16 Dose: 30 mg Metoprolol Succinate (Toprol Xl -) 50 mg PO DAILY [facility] Last Admin: 06/23/16 09:16 Dose: 50 mg Nifedipine (Procardia Xl -) 30 mg PO BID [facility] Last Admin: 06/23/16 09:16 Dose: 30 mg Nitroglycerin (Nitrostat -) 0.4 mg SL Q5M PRN PRN Reason: FOR CHEST PAIN Last Admin: 06/20/16 17:32 Dose: 0.4 mg - Objective Vital Signs: Vital Signs Temperature 98.1 F 06/23/16 06:00 Pulse Rate 76 06/23/16 06:00 Respiratory Rate 20 06/23/16 06:00 Blood Pressure 149/72 06/23/16 06:00 O2 Sat by Pulse Oximetry (%) 98 06/22/16 21:00 Constitutional: Yes: No Distress Eyes: Yes: Conjunctiva Clear Cardiovascular: Yes: Regular Rate and Rhythm Respiratory: Yes: CTA Bilaterally Gastrointestinal: Yes: Soft Edema: No Neurological: Yes: Alert Labs: CBC, BMP 06/23/16 05:35 06/22/16 07:08 INR, PTT INR 0.96 (0.82-1.09) 06/20/16 08:40 Laboratory Tests 06/22/16 06/23/16 06/23/16 07:08 05:35 05:35 WBC 6.7 Hct 37.2 Plt Count 194 PTT (Actin FS) 67.6 H Potassium 4.4 Creatinine 1.4 H - ....Imaging EKG: Image Reviewed (NSR) Assessment/Plan Assessment/Plan 56 year old man with a history of HTN, DMII, HLD admitted with episodes of chest pain and generalized fatigue. Chest pain-concerning for unstable angina -responded to NTG SL -cardiac enzymes wnl -echo showed normal LV systolic function, mild mr, mild tr, mild conc LVH -as he still has intermittent episodes of chest pain will cont heparin gtt for now -creat has trended down -plan for transfer for cardiac cath today at [facility] -holding metformin for upcoming cath -cont ASA 81mg daily and plavix HTN-above goal -cont toprol xl 50mg daily -avoid SABRINA-I/ARB and HCTZ for now given elevated creatinine on admission and concern for intravascular depletion as source
[2016-06-23] MEDS ORDERED: CLOPIDOGREL BISULFATE 75 MG TABLET (FP) PO SCH (10:00)
[2016-06-23 10:49] VITALS: PULSE 87
[2016-06-23 12:08] LABS: CALCIUM 8.7 mg/dL (8.5-10.1); CREATININE 1.5 mg/dL (0.7-1.3); MAGNESIUM 2.1 mg/dL (1.8-2.4)
[2016-06-23] MEDS: HEPARIN - 25,000 UNIT in SODIUM CHLORIDE 495 ML IV SCH (12:52)
[2016-06-23 15:43] VITALS: BP 148/81; TEMP 98.1
--- NOTE | 2016-06-24 11:59 | EKG ---
Test Reason : Blood Pressure : / mmHG Vent. Rate : 095 BPM Atrial Rate : 095 BPM P-R Int : 130 ms QRS Dur : 072 ms QT Int : 344 ms P-R-T Axes : 057 019 066 degrees QTc Int : 432 ms NORMAL SINUS RHYTHM MINIMAL VOLTAGE CRITERIA FOR LVH, MAY BE NORMAL VARIANT NONSPECIFIC ST AND T WAVE ABNORMALITY ABNORMAL ECG WHEN COMPARED WITH ECG OF 24-SEP-2010 13:16, NON-SPECIFIC CHANGE IN ST SEGMENT IN LATERAL LEADS T WAVE INVERSION NO LONGER EVIDENT IN INFERIOR LEADS T WAVE AMPLITUDE HAS INCREASED IN ANTERIOR LEADS NONSPECIFIC T WAVE ABNORMALITY NOW EVIDENT IN LATERAL LEADS Confirmed by ALESSIO ESQUIVEL, HEIDI ([id number]) on 06/24/2016 11:58:49 AM Referred By: Confirmed By:HEIDI MCCALLUM MD
== END 2016-06-23 18:30 | disposition short-term general hospital (02) | DRG 311 ==
LOC: JER 08:34 → UNDOADMIN 10:23 → JERBED 10:23 → J4S 10:54 → JERBED 10:54 → J4S 22:53
PROVIDERS: ADMIT Internal Medicine; ATTEND Internal Medicine
DX: I20.0 Unstable angina (principal); N17.9 Acute kidney failure, unspecified; R07.9 Chest pain, unspecified; I10 Essential (primary) hypertension; E11.9 Type 2 diabetes mellitus without complications; E78.5 Hyperlipidemia, unspecified
CPT/HCPCS: 36415; 71010-TC; 80048; 80053; 80061; 82550; 82553; 83721; 83735; 83880; 84443; 84484; 85025; 85027; 85610; 85730; 93005; 93010; 93306-TC; 99284-25; J1644

== ENCOUNTER 2016-07-12 14:14 | Emergency (ER) | payer OTHER ==
[2016-07-12 14:20] VITALS: BP 153/71; PULSE 78; TEMP 98; BMI 20.3
--- NOTE | 2016-07-12 15:23 | PDOC ---
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 Patient states yesterday symptoms increase. Patient states was getting off the bus and when he stood up he felt a sharp shock like pain down his right leg that lasted for a few seconds and felt as if his leg gave out. Patient states took Motrin last night with minimal affect and then again this morning secondary to pain worsened with standing. 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 Occurred: reports: other (months) Severity: reports: moderate Pain Location: reports: back, lower extremity Method of Injury: Yes: unknown Associated Symptoms (Fall): trouble walking (due to right leg pain) Past History - Past Medical History Allergies/Adverse Reactions: Allergies Allergy/AdvReac Type Severity Reaction Status Date / Time No Known Allergies Allergy Verified 07/12/16 14:20 Home Medications: Ambulatory Orders Acetaminophen [Tylenol .Regular Strength -] 650 mg PO Q6H PRN #0 tablet Aspirin [ASA -] 81 mg PO DAILY #0 tab.chew 06/23/16 Insulin (Levemir) [Levemir Vial] 45 units SQ BID@0700,2200 #0 ml 06/23/16 Isosorbide Mononitrate [Imdur -] 30 mg PO DAILY #0 tab.sr.24h 06/23/16 Metoprolol Succinate [Toprol XL -] 50 mg PO DAILY #0 tab.sr.24h 06/23/16 Diabetes: Yes HTN: Yes Hypercholesterolemia: Yes - Immunization History Td Vaccination: (OVER 5 yrs) - Psycho/Social/Smoking Cessation Hx Anxiety: No Suicidal Ideation: No Smoking Status: No Smoking History: Never smoked Have you smoked in the past 12 months: No Number of Cigarettes Smoked Daily: 0 Information on smoking cessation initiated: No Hx Alcohol Use: No Drug/Substance Use Hx: No Substance Use Type: None Hx Substance Use Treatment: No Patient Lives Alone: No Lives with/in: spouse/SO Trauma Specific PMHX - Complaint Specific PMHX Arthritis: No Back Injury: No Neck Injury: No Hx Sacro Iliac Joint Dysfunction: No Review of Systems - Review of Systems Able to Perform ROS?: Yes Constitutional: No: Symptoms Reported HEENTM: No: Symptoms Reported Respiratory: No: Symptoms reported Cardiac (ROS): No: Symptoms Reported ABD/GI: No: Symptoms Reported : No: Symptoms Reported Musculoskeletal: Yes: Back Pain, Muscle Pain Integumentary: No: Symptoms Reported Neurological: No: Tingling Endocrine: No: Symptoms Reported Hematologic/Lymphatic: No: Symptoms Reported *Physical Exam - Vital Signs Last Vital Signs Temp Pulse Resp BP Pulse Ox 98 F 78 18 153/71 100 07/12/16 14:15 07/12/16 14:15 07/12/16 14:15 07/12/16 14:15 07/12/16 14:15 - Physical Exam General Appearance: Yes: Nourished, Appropriately Dressed. No: Apparent Distress HEENT: negative: Pale Conjunctivae Respiratory/Chest: positive: Lungs Clear, Normal Breath Sounds. negative: Respiratory Distress, Accessory Muscle Use Cardiovascular: positive: Regular Rhythm, Regular Rate. negative: Murmur Gastrointestinal/Abdominal: positive: Soft. negative: Tenderness Musculoskeletal: negative: CVA Tenderness, Vertebral Tenderness (no midline tenderness no paraspinous muscle tenderness) Extremity: positive: Normal Capillary Refill, Normal Inspection, Tender (over rt buttock/rt sciatica). negative: Normal Range of Motion, Pedal Edema Integumentary: positive: Normal Color, Warm, Moist. negative: Swelling Neurologic: positive: Normal Mood/Affect, Motor Strength 5/5 (ambulatory) ED Treatment Course - RADIOLOGY Radiology Studies Ordered: Category Date Time Status SPINE-LUMBAR ONLY [RAD] Stat Radiology 07/12/16 15:09 Ordered Medical Decision Making - Medical Decision Making 07/12/16 15:27 Patient with low back pain now radiating down his right leg for the past few months. Patient states pain is worsened with standing. Patient has no complaints of weakness, sensory changes, incontinence, or saddle anesthesia patient with likely sciatica based on clinical exam. Patient ordered for x-ray of the lower back. 07/12/16 15:53 X-ray shows pelvic calcification noted over the sacrum. The lateral view show straightening with minimal degenerative changes and wedging. There is no sign of blastic or lytic lesions or fracture or subluxation. There is mention of a minimal Schmorl node formation at the base of L5 vertebral body. Patient will be given Percocet and orthopedist referral *DC/Admit/Observation/Transfer Diagnosis at time of Disposition: Pain in lower extremity due to sciatica - Discharge Dispostion Disposition: HOME Condition at time of disposition: Good - Referrals Referrals: Bernardo To MD [Staff Physician] - - Patient Instructions Printed Discharge Instructions: DI for Sciatica, Sciatica (Alternative Therapy) Additional Instructions: I recommend taking Percocet as needed for severe pain. Otherwise may take regular strength Tylenol. Please read over information I have enclosed and follow up with referred orthopedist.
[2016-07-12] MEDS ORDERED: OXYCODONE/APAP 5/325MG COMBO TABLET PO ONE (15:53)
[2016-07-12] MEDS ORDERED: OXYCODONE/APAP 5/325MG COMBO TABLET ONE (15:57)
== END 2016-07-12 15:59 | disposition home or self-care (01) ==
LOC: JERFT 14:14
DX: M54.41 Lumbago with sciatica, right side (principal); I10 Essential (primary) hypertension; E11.9 Type 2 diabetes mellitus without complications; Z79.4 Long term (current) use of insulin; E78.00 Pure hypercholesterolemia, unspecified
CPT/HCPCS: 72100-TC; 99281-25

== ENCOUNTER 2016-07-13 06:59 | Emergency (ER) | payer OTHER ==
[2016-07-13 07:17] VITALS: TEMP 97.8; BMI 20.3
[2016-07-13] MEDS ORDERED: KETOROLAC TROMETHAMINE 60 MG/2 ML VIAL IM ONE (08:03)
[2016-07-13] MEDS ORDERED: diazePAM 5 MG TABLET PO ONE (08:03)
[2016-07-13] MEDS ORDERED: KETOROLAC TROMETHAMINE 60 MG/2 ML VIAL ONE (08:09)
[2016-07-13] MEDS ORDERED: diazePAM 5 MG TABLET ONE (08:10)
--- NOTE | 2016-07-13 08:11 | PDOC ---
History of Present Illness - General History Source: Patient - History of Present Illness Occurred: reports: other Pain Location: reports: lower extremity <Lorenzo Mayo Last Filed: 07/13/16 10:09> <Kaden Teresa - Last Filed: 07/14/16 09:36> - General Chief Complaint: Pain, Acute Stated Complaint: PAIN RIGHT LEG - NUMB Time Seen by Provider: 07/13/16 07:47 Past History - Past Medical History Diabetes: Yes HTN: Yes Hypercholesterolemia: Yes - Immunization History Td Vaccination: (OVER 5 yrs) - Psycho/Social/Smoking Cessation Hx Anxiety: No Suicidal Ideation: No Smoking Status: No Smoking History: Never smoked Have you smoked in the past 12 months: No Number of Cigarettes Smoked Daily: 0 Hx Alcohol Use: No Drug/Substance Use Hx: No Substance Use Type: None Hx Substance Use Treatment: No <Elle Mayo Filed: 07/13/16 10:09> <Kaden Teresa - Last Filed: 07/14/16 09:36> - Past Medical History Allergies/Adverse Reactions: Allergies Allergy/AdvReac Type Severity Reaction Status Date / Time No Known Allergies Allergy Verified 07/13/16 07:17 Home Medications: Ambulatory Orders Aspirin [ASA -] 81 mg PO DAILY #0 tab.chew 06/23/16 Insulin (Levemir) [Levemir Vial] 45 units SQ BID@0700,2200 #0 ml 06/23/16 Isosorbide Mononitrate [Imdur -] 30 mg PO DAILY #0 tab.sr.24h 06/23/16 Metoprolol Succinate [Toprol XL -] 50 mg PO DAILY #0 tab.sr.24h 06/23/16 Oxycodone HCl/Acetaminophen [Percocet 5-325 mg Tablet] 1 - 2 tab PO Q6H PRN #12 tab MDD 4 07/12/16 Cyclobenzaprine HCl [Flexeril -] 10 mg PO TID #9 tablet 07/13/16 Ibuprofen [Motrin -] 800 mg PO Q6H #30 tablet 07/13/16 Nifedipine [Nifedical Xl] 60 mg PO DAILY 07/13/16 Trauma Specific PMHX - Complaint Specific PMHX Arthritis: No Back Injury: No Neck Injury: No Hx Sacro Iliac Joint Dysfunction: No <James Mayo - Last Filed: 07/13/16 10:09> Review of Systems - Review of Systems Neurological: Yes: Numbness. No: Tingling, Weakness <GaelJames - Last Filed: 07/13/16 10:09> *Physical Exam - Vital Signs Last Vital Signs Temp Pulse Resp BP Pulse Ox 97.8 F 77 16 187/80 98 07/13/16 07:13 07/13/16 07:13 07/13/16 07:13 07/13/16 07:13 07/13/16 07:13 - Physical Exam General Appearance: Yes: Appropriately Dressed, Moderate Distress HEENT: positive: Normal Voice Neck: positive: Supple Respiratory/Chest: negative: Respiratory Distress Extremity: positive: Normal Inspection, Normal Range of Motion, Other (pt limping in ED). negative: Tender Integumentary: positive: Dry, Warm Neurologic: positive: Fully Oriented, Alert, Normal Mood/Affect. negative: Sensory Deficit <James Mayo Last Filed: 07/13/16 10:09> - Vital Signs Last Vital Signs Temp Pulse Resp BP Pulse Ox 97.8 F 66 18 159/67 100 07/13/16 07:13 07/13/16 10:43 07/13/16 10:43 07/13/16 10:43 07/13/16 10:43 <Kaden Teresa - Last Filed: 07/14/16 09:36> ED Treatment Course - Medications Given in the ED: ED Medications Discontinued Medications Generic Name Dose Route Start Last Admin Trade Name Collette PRN Reason Stop Dose Admin Diazepam 5 mg 07/13/16 08:03 07/13/16 08:21 Valium - PO 07/13/16 08:04 5 mg ONCE ONE Administration Ketorolac Tromethamine 60 mg 07/13/16 08:03 07/13/16 08:20 Toradol Injection - IM 07/13/16 08:04 60 mg ONCE ONE Administration <Kaden Teresa - Last Filed: 07/14/16 09:36> Medical Decision Making - Medical Decision Making 07/13/16 08:05 56-year-old male, history of hyperlipidemia, hypertension and diabetes, presenting with severe pain to right lower extremity. Patient reports pain to right hip that radiates down posterior aspect of right thigh and leg that has been intermittent for 1 month. Was seen in ED yesterday for same, had an x-ray showing pelvic calcification and some lumbosacral DJD. Patient was sent home with Percocet, which he says he has not had a chance to fill. States pain has since worsened and that last night for the first time, he experienced numbness of entire right lower extremity. Denies lower extremity weakness, saddle anesthesia or bowel or bladder incontinence. Patient also reports lower back pain that has been on and off x 6 months. 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 See exam Chronic LBP now w/ RLE pain and numbness M/l sciatica Limbing in ED 2/2 pain, neg SLR and no s/o cauda equina -pain control/reassess -anticipate discharge w. spine f/u 07/13/16 08:11 07/13/16 10:11 07/13/16 09:54 Pt reports significant improvement in symptoms, able to move more swiftly in ED and now able to bear weight on the right. Will discharge w pain meds and give referral for metrology specialist 07/13/16 10:19 <James Mayo - Last Filed: 07/13/16 10:09> - Medical Decision Making 07/14/16 09:36 The patient was seen and evaluated in conjunction with [facility] Lloyd under my direct supervision, ancillary studies were reviewed. I agree with the plan as outlined by ANUP Mayo . <Kaden Teresa - Last Filed: 07/14/16 09:36> *DC/Admit/Observation/Transfer <James Mayo - Last Filed: 07/13/16 10:09> <Kaden Teresa - Last Filed: 07/14/16 09:36> Diagnosis at time of Disposition: Sciatica Qualifiers: Laterality: right Qualified Code(s): M54.31 - Sciatica, right side - Discharge Dispostion Disposition: HOME Condition at time of disposition: Improved - Prescriptions Prescriptions: Cyclobenzaprine HCl [Flexeril -] 10 mg PO TID #9 tablet Ibuprofen [Motrin -] 800 mg PO Q6H #30 tablet - Referrals Referrals: Salomón Levin MD [Primary Care Provider] - Tom Mallory MD [Staff Physician] - - Patient Instructions Additional Instructions: Take medications as directed and follow up with Dr Mallory of neurosurgery. Please return for worsening of symptoms such as weakness of our leg, not being able to feel your groin or not being able to control your bowel or bladder - Post Discharge Activity Work/School Note: Back to Work
[2016-07-13 10:44] VITALS: BP 159/67; PULSE 66
== END 2016-07-13 10:44 | disposition home or self-care (01) ==
LOC: JER 06:59
PROC: 3E0233Z Introduction of Anti-inflammatory into Muscle, Percutaneous Approach (ICD-10-PCS; principal; 2016-07-13)
DX: M54.31 Sciatica, right side (principal); E78.5 Hyperlipidemia, unspecified; I10 Essential (primary) hypertension; E11.9 Type 2 diabetes mellitus without complications; Z79.4 Long term (current) use of insulin
CPT/HCPCS: 99282-25

== ENCOUNTER 2019-03-05 09:43 | Emergency (ER) | payer OTHER ==
[2019-03-05 09:46] VITALS: TEMP 98.1; BMI 20.5
[2019-03-05 10:52] LABS: BASO % 0.3 % (0-2.0); EOS % 0.6 % (0-4.5); HEMATOCRIT 40.2 % (35.4-49); HEMOGLOBIN 13.5 GM/dL (11.7-16.9); LYMPH % 9.6 % (8-40); MCH 28.3 pg (25.7-33.7); MCHC 33.7 g/dl (32.0-35.9); MEAN CELL VOLUME 84.1 fl (80-96); MEAN PLT VOLUME 9.5 fl (7.5-11.1); MONO % 7.1 % (3.8-10.2); NEUT % 82.4 % (42.8-82.8); PLATELET COUNT 159 K/MM3 (134-434); RBC 4.78 M/mm3 (4.00-5.60); RDW 13.8 % (11.9-15.9); WHITE BLOOD COUNT 8.3 K/mm3 (4.0-10.0)
--- NOTE | 2019-03-05 11:05 | PDOC ---
History of Present Illness - General Chief Complaint: Pain Stated Complaint: PAIN Time Seen by Provider: 03/05/19 10:06 History Source: Patient Exam Limitations: Clinical Condition - History of Present Illness Initial Comments: 03/05/19 11:01 Patient with history of diabetes, hypertension and hyperlipidemia present with complaint of chest tightness upon wake this morning and with cough. Patient reported dry cough and chest tightness when he coughs on the left side. Patient report sensation of chest pressure on the left side. Denies shortness of breath , tingling or numbness sensation, fever, chills, dizziness, nausea or vomiting. Denies any other symptoms. Denies smoking Is this a multiple visit Asthma Patient?: No Timing/Duration: 4-6 hours Past History - Past Medical History Allergies/Adverse Reactions: Allergies Allergy/AdvReac Type Severity Reaction Status Date / Time No Known Allergies Allergy Verified 03/05/19 09:46 Home Medications: Ambulatory Orders Aspirin [ASA -] 81 mg PO DAILY #0 tab.chew 06/23/16 Insulin (Levemir) [Levemir Vial] 45 units SQ BID@0700,2200 #0 ml 06/23/16 Isosorbide Mononitrate [Imdur -] 30 mg PO DAILY #0 tab.sr.24h 06/23/16 Metoprolol Succinate [Toprol XL -] 50 mg PO DAILY #0 tab.sr.24h 06/23/16 Oxycodone HCl/Acetaminophen [Percocet 5-325 mg Tablet] 1 - 2 tab PO Q6H PRN #12 tab MDD 4 07/12/16 Cyclobenzaprine HCl [Flexeril -] 10 mg PO TID #9 tablet 07/13/16 Ibuprofen [Motrin -] 800 mg PO Q6H #30 tablet 07/13/16 Nifedipine [Nifedical Xl] 60 mg PO DAILY 07/13/16 Benzonatate [Tessalon Pearls -] 100 mg PO Q8H PRN #21 capsule 03/05/19 Methylprednisolone [Medrol Dose Melo] 4 mg PO ASDIR #21 tablet 03/05/19 COPD: No Diabetes: Yes HTN: Yes Hypercholesterolemia: Yes - Immunization History Td Vaccination: (OVER 5 yrs) - Psycho Social/Smoking Cessation Hx Smoking Status: No Smoking History: Never smoked Have you smoked in the past 12 months: No Number of Cigarettes Smoked Daily: 0 Hx Alcohol Use: No Drug/Substance Use Hx: No Substance Use Type: None Hx Substance Use Treatment: No Review of Systems - Review of Systems Able to Perform ROS?: Yes Is the patient limited Iranian proficient: No Constitutional: No: Chills, Fever, Malaise HEENTM: No: Symptoms Reported, See HPI, Eye Pain, Blurred Vision, Tearing, Recent change in vision, Double Vision, Cataracts, Ear Pain, Ocular Prothesis, Ear Discharge, Nose Pain, Nose Congestion, Tinnitus, Nose Bleeding, Hearing Loss , Throat Pain, Throat Swelling, Mouth Pain, Dental Problems, Difficulty Swallowing, Mouth Swelling, Other Respiratory: Yes: Symptoms reported, See HPI, Cough (intermittent). No: Orthopnea, Shortness of Breath, SOB with Exertion, SOB at Rest, Stridor, Wheezing, Productive cough, Hemoptysis, Other Cardiac (ROS): Yes: Symptoms Reported, See HPI, Chest Tightness (on left side). No: Chest Pain, Edema, Irregular Heart Rate, Lightheadedness, Palpitations, Syncope, Other ABD/GI: No: Symptoms Reported, Abdominal Distended, Constipated, Diarrhea, Nausea, Vomiting, Abdominal cramping Musculoskeletal: No: Symptoms Reported Integumentary: No: Symptoms Reported Neurological: No: Symptoms reported, Headache, Numbness, Seizure, Dizziness All Other Systems: Reviewed and Negative *Physical Exam - Vital Signs Last Vital Signs Temp Pulse Resp BP Pulse Ox 98.1 F 102 H 18 183/88 H 99 03/05/19 09:45 03/05/19 09:45 03/05/19 09:45 03/05/19 09:45 03/05/19 09:45 - Physical Exam Comments: 03/05/19 11:04 GENERAL: Well developed, well nourished. Awake and alert. No acute distress. HEENT: Normocephalic, atraumatic. PERRLA, EOMI. No conjunctival pallor. Sclera are non-icteric. Moist mucous membranes. Oropharynx is clear. NECK: Supple. Full ROM. CARDIOVASCULAR: Regular rate and rhythm. No murmurs, rubs, or gallops. Distal pulses are 2+ and symmetric. PULMONARY: No evidence of respiratory distress. Lungs clear to auscultation bilaterally. No wheezing, rales or rhonchi. ABDOMINAL: Soft. Non-tender. Non-distended. No rebound or guarding. No organomegaly. Normoactive bowel sounds. MUSCULOSKELETAL Normal range of motion at all joints. EXTREMITIES: No cyanosis. No clubbing. No edema. SKIN: Warm and dry. Normal capillary refill. No rashes. NEUROLOGICAL: Alert, awake, appropriate. Gait is normal without ataxia. PSYCHIATRIC: Cooperative. Good eye contact. Appropriate mood General Appearance: Yes: Nourished, Appropriately Dressed. No: Apparent Distress ED Treatment Course - LABORATORY CBC & Chemistry Diagram: 03/05/19 10:41 03/05/19 10:41 - ADDITIONAL ORDERS Additional order review: 03/05/19 10:41 RBC 4.78 MCV 84.1 MCHC 33.7 RDW 13.8 MPV 9.5 Neutrophils % 82.4 D Lymphocytes % 9.6 D Monocytes % 7.1 Eosinophils % 0.6 Basophils % 0.3 - RADIOLOGY Radiology Studies Ordered: Category Date Time Status CHEST PA & LAT [RAD] Stat Radiology 03/05/19 10:33 Completed Medical Decision Making - Medical Decision Making 03/05/19 11:03 Patient with history of diabetes, hypertension and hyperlipidemia present with complaint of chest tightness upon wake this morning and with cough. Patient reported dry cough and chest tightness when he coughs on the left side. Patient report sensation of chest pressure on the left side. Denies shortness of breath , tingling or numbness sensation, fever, chills, dizziness, nausea or vomiting. Denies any other symptoms. Denies smoking Clinical exam unremarkable with lungs clear to auscultation. Patient no acute distress. Normal cardio exam. Patient afebrile. Symptoms likely viral URI with bronchospasm versus less likely cardiogenic symptoms. EKG shows normal sinus rhythm. Chest x-ray ordered to rule out acute chest pathology. CBC, CMP and cardiac profile lab ordered. Treat based on lab and imaging results 03/05/19 13:28 CBC, CMP and troponins negative. Chest x-ray shows no acute infiltrate or pathology. Repeat cardiac profile lab in 3 hours for confirmative tests. Patient report still feels chest tightness. duoneb with albuterol/atrovent ordered. 03/05/19 14:38 Repeat troponin is negative. Patient reported improvement with chest tightness after DuoNeb. Patient is stable for discharge on Tessalon Perles when necessary for cough and Medrol Melo for bronchospasm with advised to follow-up with PCP as soon as possible in the next 2-3 days. Patient with elevated BUN/CR levels and advised to follow up with urology as he was away all mildly elevated kidney labs in the past but no diagnosis of renal failure. Patient voice understanding and will follow-up with urologist tomorrow. 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 ARF (acute renal failure) Qualifiers: Acute renal failure type: unspecified Qualified Code(s): N17.9 - Acute kidney failure, unspecified Condition: Stable Disposition: HOME - Admission No - Additional Discharge Information Prescriptions: Benzonatate [Tessalon Pearls -] 100 mg PO Q8H PRN #21 capsule PRN Reason: Cough Methylprednisolone [Medrol Dose Melo] 4 mg PO ASDIR #21 tablet - Follow up/Referral Referrals: Salomón Levin MD [Primary Care Provider] - Marvel Levi MD [Staff Physician] - - Patient Discharge Instructions Patient Printed Discharge Instructions: DI for Atypical Chest Pain Additional Instructions: Your EKG and heart labs shows no indication of acute heart attack. Your chest x- rays is normal. Your symptoms is likely caused by upper respiratory viral infection causing bronchospasm. Your kidney labs are abnormal and needs to be followed up. Follow up with referred urologist as soon as possible. Come back to ED if worsening chest pain, shortness of breathe, dizziness - Post Discharge Activity Work/Back to School Note: Back to Work
[2019-03-05 11:23] LABS: ALBUMIN 3.2 g/dl (3.4-5.0); ALK PHOS 86 U/L (45-117); ANION GAP 10 MMOL/L (8-16); BILIRUBIN,TOTAL 0.4 mg/dL (0.2-1); BLOOD UREA NITROGEN 38.7 mg/dL (7-18); CALCIUM 8.3 mg/dL (8.5-10.1); CHLORIDE 99 mmol/L (98-107); CO2 28 mmol/L (21-32); CREATININE 2.1 mg/dL (0.55-1.3); GLUCOSE,RANDOM 246 mg/dL (74-106); POTASSIUM 3.8 mmol/L (3.5-5.1); SGOT/AST 22 U/L (15-37); SGPT/ALT 37 U/L (13-61); SODIUM 138 mmol/L (136-145); TOT PROT 6.6 g/dl (6.4-8.2)
[2019-03-05] MEDS ORDERED: ALBUTEROL SO4 2.5/IPRATROPIUM 0.5 INH SOL 3 ML VIAL.NEB. NEB ONE ×2 (13:41→13:53)
[2019-03-05 14:44] VITALS: BP 158/78; PULSE 89
--- NOTE | 2019-03-05 16:44 | EKG ---
Test Reason : Blood Pressure : / mmHG Vent. Rate : 091 BPM Atrial Rate : 091 BPM P-R Int : 136 ms QRS Dur : 086 ms QT Int : 368 ms P-R-T Axes : 044 009 008 degrees QTc Int : 452 ms NORMAL SINUS RHYTHM POSSIBLE LEFT ATRIAL ENLARGEMENT LEFT VENTRICULAR HYPERTROPHY NONSPECIFIC T WAVE ABNORMALITY ABNORMAL ECG WHEN COMPARED WITH ECG OF 20-JUN-2016 09:11, NO SIGNIFICANT CHANGE WAS FOUND Confirmed by LESLY ESQUIVEL, MANISHA ([id number]) on 03/05/2019 4:44:45 PM Referred By: Confirmed By:MANISHA GRACE MD
== END 2019-03-05 14:44 | disposition home or self-care (01) ==
LOC: JER 09:43
PROC: 3E0F7GC Introduction of Other Therapeutic Substance into Respiratory Tract, Via Natural or Artificial Opening (ICD-10-PCS; principal; 2019-03-05)
DX: R07.81 Pleurodynia (principal); R07.1 Chest pain on breathing; E11.9 Type 2 diabetes mellitus without complications; Z79.4 Long term (current) use of insulin; N17.9 Acute kidney failure, unspecified; I10 Essential (primary) hypertension; E78.5 Hyperlipidemia, unspecified
CPT/HCPCS: 36415; 71046-TC-FY; 80053; 82550; 82553; 84484; 85025; 93005; 93010; 99283-25

== ENCOUNTER 2019-05-30 06:30 | Emergency (ER) | payer OTHER ==
[2019-05-30 06:50] VITALS: BP 165/79; PULSE 69; TEMP 98.1; BMI 20.5
[2019-05-30] MEDS ORDERED: DIPHTH,PERTUSS(ACELL),TET 0.5 ML DISP.SYRIN IM ONE ×2 (07:26→07:30)
[2019-05-30] MEDS ORDERED: ACETAMINOPHEN 500 MG TABLET (FP) PO ONE (07:31)
--- NOTE | 2019-05-30 07:31 | PDOC ---
History of Present Illness - General Chief Complaint: Injury Stated Complaint: HEAD LAC Time Seen by Provider: 05/30/19 07:14 History Source: Patient Exam Limitations: No Limitations - History of Present Illness Initial Comments: 05/30/19 07:32 58yM w PMHx DM HTN HLD on anticoagulation presenting w head injury s/p mechanical fall. 625a today sitting on edge of bench in locker room while changing clothes, slid forward on bench, hit posterior head on bench edge. No LOC, vision change, chest pain, SOB, vomiting. Mild headache now. On blood thinner. Last tdap >5yrs ago. Past History - Past Medical History Allergies/Adverse Reactions: Allergies Allergy/AdvReac Type Severity Reaction Status Date / Time No Known Allergies Allergy Verified 05/30/19 06:50 Home Medications: Ambulatory Orders Aspirin [ASA -] 81 mg PO DAILY #0 tab.chew 06/23/16 Isosorbide Mononitrate [Imdur -] 30 mg PO DAILY #0 tab.sr.24h 06/23/16 Metoprolol Succinate [Toprol XL -] 50 mg PO DAILY #0 tab.sr.24h 06/23/16 Nifedipine [Nifedical Xl] 60 mg PO DAILY 07/13/16 Insulin (Levemir) [Levemir Vial] 55 units SQ HS 05/30/19 Metformin HCl [Glucophage] 500 mg PO DAILY 05/30/19 Sitagliptin Phosphate [Januvia] 1 tab PO DAILY 05/30/19 COPD: No Diabetes: Yes HTN: Yes Hypercholesterolemia: Yes - Immunization History Td Vaccination: (OVER 5 yrs) - Psycho Social/Smoking Cessation Hx Smoking Status: No Smoking History: Never smoked Have you smoked in the past 12 months: No Number of Cigarettes Smoked Daily: 0 Hx Alcohol Use: No Drug/Substance Use Hx: No Substance Use Type: None Hx Substance Use Treatment: No Trauma Specific PMHX - Complaint Specific PMHX Arthritis: No Back Injury: No Neck Injury: No Hx Sacro Iliac Joint Dysfunction: No Review of Systems - Review of Systems Constitutional: No: Chills, Fever HEENTM: No: Eye Pain, Recent change in vision, Nose Pain, Throat Pain, Mouth Pain Respiratory: No: Cough, Shortness of Breath Cardiac (ROS): No: Chest Pain, Palpitations, Syncope ABD/GI: No: Abdominal Distended, Constipated, Diarrhea, Nausea, Vomiting : No: Burning, Dysuria, Hematuria Musculoskeletal: No: Back Pain, Neck Pain Integumentary: No: Bruising, Flushing, Lesions Neurological: Yes: Headache. No: Numbness, Seizure, Tingling Psychiatric: No: Anxiety, Depression Endocrine: No: Excessive Sweating, Flushing, Intolerance to Cold, Intolerance to Heat Hematologic/Lymphatic: No: Anemia, Blood Clots *Physical Exam - Vital Signs Last Vital Signs Temp Pulse Resp BP Pulse Ox 98.1 F 69 20 165/79 99 05/30/19 06:30 05/30/19 06:30 05/30/19 06:30 05/30/19 06:30 05/30/19 06:30 - Physical Exam General Appearance: Yes: Nourished, Appropriately Dressed. No: Apparent Distress HEENT: positive: EOMI, ROBERTO, Normal Voice, Hearing Grossly Normal. negative: Scleral Icterus (R), Scleral Icterus (L), Nasal Congestion, Rhinorrhea Neck: positive: Supple. negative: Tender, Rigid, Decreased range of motion Respiratory/Chest: positive: Lungs Clear, Normal Breath Sounds. negative: Chest Tender, Respiratory Distress, Crackles, Rales, Rhonchi, Stridor, Wheezing Cardiovascular: positive: Regular Rhythm, Regular Rate, S1, S2. negative: Edema , Murmur Extremity: positive: Normal Capillary Refill Integumentary: positive: Normal Color Neurologic: positive: inside sales trainer II-XII NML intact, Fully Oriented, Alert, Normal Mood/ Affect, Normal Response, Motor Strength 5/5, Responsive. negative: Facial Droop , Numbness, Sensory Deficit, Confused, Disoriented ED Treatment Course - RADIOLOGY Radiology Studies Ordered: Category Date Time Status HEAD CT WITHOUT CONTRAST [CT] Stat CT Scan 05/30/19 07:24 Ordered Medical Decision Making - Medical Decision Making 05/30/19 07:30 58yM w PMHx DM HTN HLD on anticoagulation presenting w head injury s/p mechanical fall. Head CT did not show acute bleed/infarct/fx. Covered abrasion w bacitracin, given tdap, tylenol. DC home Discharge - Discharge Information Problems reviewed: Yes Clinical Impression/Diagnosis: Head injury due to trauma Qualifiers: Encounter type: initial encounter Qualified Code(s): S09.90XA - Unspecified injury of head, initial encounter Condition: Good Disposition: HOME - Admission No - Follow up/Referral Referrals: Salomón Levin MD [Primary Care Provider] - - Patient Discharge Instructions Patient Printed Discharge Instructions: Closed Head Injury Additional Instructions: You were seen for head injury after falling. Your head scan does not show anything concerning. You were given bacitracin. Take tylenol if you have a headache. Come back to the ED if you have vision change, vomiting, or worsening pain. - Post Discharge Activity
[2019-05-30] MEDS ORDERED: ACETAMINOPHEN 325 MG TABLET (FP) ONE (07:34)
[2019-05-30] MEDS ORDERED: BACITRACIN 15 GM TUBE TOPICAL OINTMENT TP ONE (07:35)
[2019-05-30] MEDS ORDERED: BACITRACIN 0.9 GM PACKET ONE (07:42)
--- NOTE | 2019-05-30 08:41 | PDOC ---
Attending Attestation - Resident Resident Name: Kory Méndez - ED Attending Attestation I have performed the following: I have examined & evaluated the patient, The case was reviewed & discussed with the resident, I agree w/resident's findings & plan - HPI HPI: 05/30/19 08:37 58-year-old male with history of hypertension, employee of [employer], presents with scalp abrasion. Patient was seated on the edge of a bench, slipped off and struck the back of his head on the bench. No other injuries, head did not hit the floor, denies any generalized headache but reports some scalp pain near the lesion. No vision change/speech change/nausea/vomiting/focal deficit. No other pain. Patient states he takes a blood thinner, unclear of the name or the indication. - Physicial Exam PE: 05/30/19 08:39 Vital signs stable Well-appearing, horizontal 2 cm superficial abrasion to the occipital scalp. No hematoma or bogginess or bony deformity. NEURO: Mental status: The patient is alert and oriented x3. Cranial nerves: Cranial nerves II through XII are intact Motor: The upper extremities are 5 over 5 in all muscle groups. The lower extremities are 5 over 5 in all muscle groups. No pronator drift. Sensation: Sensation is intact to light touch throughout. Cerebellar: Shjafc-soetkq-maja is normal in both upper extremities. Heel-knee- hernandez is normal in both lower extremities. Reflexes: 2+ and symmetric in the upper and lower extremities. Gait: Normal. Heel and toe walking are normal. Tandem gait is normal. - Medical Decision Making 05/30/19 08:39 58-year-old male with minor occipital head injury and scalp abrasion, neurologically intact without other red flags on history or physical exam other than possibly being on a blood thinner. Tetanus updated CT head performed and within normal limits Wound care, discharge, understands return criteria
== END 2019-05-30 08:21 | disposition home or self-care (01) ==
LOC: JER 06:30
DX: S00.01XA Abrasion of scalp, initial encounter (principal); W01.198A Fall on same level from slipping, tripping and stumbling with subsequent striking against other object, initial encounter; Y93.89 Activity, other specified; Y92.238 Other place in hospital as the place of occurrence of the external cause; Y99.0 Civilian activity done for income or pay; I10 Essential (primary) hypertension; E78.5 Hyperlipidemia, unspecified; E11.9 Type 2 diabetes mellitus without complications; Z79.4 Long term (current) use of insulin; Z79.01 Long term (current) use of anticoagulants
CPT/HCPCS: 70450-TC; 90715; 99281-25

== ENCOUNTER 2021-05-11 09:44 | Emergency (ER) | payer OTHER ==
[2021-05-11 09:50] VITALS: BP 183/86; PULSE 84; TEMP 98; BMI 19.3
== END 2021-05-11 12:29 | disposition home or self-care (01) ==
LOC: JER 09:44
DX: R04.0 Epistaxis (principal)
CPT/HCPCS: 99282-25

== ENCOUNTER 2021-08-30 20:39 | Emergency (ER) | payer OTHER ==
[2021-08-30 20:47] VITALS: TEMP 97.8; BMI 22.0
[2021-08-30] MEDS ORDERED: ACETAMINOPHEN 325 MG TABLET (FP) PO ONE (23:11)
[2021-08-30] MEDS ORDERED: AMOX TR/POT CLAV 875MG/125MG TABLETS (FP) PO ONE (23:11)
[2021-08-30] MEDS ORDERED: ACETAMINOPHEN 325 MG TABLET (FP) ONE (23:12)
[2021-08-30] MEDS ORDERED: AMOX TR/POT CLAV 875MG/125MG TABLETS (FP) ONE (23:16)
[2021-08-30 23:20] VITALS: BP 155/78; PULSE 83
== END 2021-08-30 23:42 | disposition home or self-care (01) ==
LOC: JER 20:39
DX: R04.0 Epistaxis (principal)
CPT/HCPCS: 99283-25

== ENCOUNTER 2021-09-15 07:52 | Emergency (ER) | payer OTHER ==
[2021-09-15 08:15] VITALS: BP 187/95; PULSE 85; TEMP 97.8; BMI 22.0
== END 2021-09-15 08:54 | disposition home or self-care (01) ==
LOC: JERFT 07:52
DX: S61.312A Laceration without foreign body of right middle finger with damage to nail, initial encounter (principal); W23.0XXA Caught, crushed, jammed, or pinched between moving objects, initial encounter
CPT/HCPCS: 99281-25

== ENCOUNTER 2021-12-02 06:20 | Emergency (ER) | payer OTHER ==
[2021-12-02 06:53] VITALS: BP 188/93; PULSE 82; TEMP 97.7; BMI 21.7
== END 2021-12-02 08:16 | disposition home or self-care (01) ==
LOC: JER 06:20
DX: R04.0 Epistaxis (principal)
CPT/HCPCS: 99281-25

== ENCOUNTER 2021-12-15 02:02 | Inpatient (IN) | payer OTHER ==
[2021-12-15] MEDS ORDERED: NIFEdipine E.R. 90 MG TABLET PO ONE (03:00)
[2021-12-15] MEDS ORDERED: NIFEdipine E.R. 30 MG TABLET ONE (03:21)
[2021-12-15] MEDS ORDERED: CARVEDILOL 6.25 MG TABLET (FP) PO ONE (04:16)
[2021-12-15] MEDS ORDERED: CARVEDILOL 6.25 MG TABLET (FP) ONE ×3 (04:19→21:53)
[2021-12-15 05:11] LABS: BASO % 0.3 % (0-2.0); EOS % 2.5 % (0-4.5); HEMOGLOBIN 12.6 GM/dL (11.7-16.9); LYMPH % 15.1 % (8-40); MCH 27.9 pg (25.7-33.7); MCHC 33.3 g/dl (32.0-35.9); MEAN CELL VOLUME 83.7 fl (80-96); MEAN PLT VOLUME 9.2 fl (7.5-11.1); MONO % 8.6 % (3.8-10.2); NEUT % 73.5 % (42.8-82.8); PLATELET COUNT 187 10^3/uL (134-434); RBC 4.54 M/mm3 (4.00-5.60); RDW 14.6 % (11.9-15.9); WHITE BLOOD COUNT 5.6 K/mm3 (4.0-10.0)
[2021-12-15 05:30] LABS: CHLORIDE 104 mmol/L (98-107); SODIUM 139 mmol/L (136-145)
[2021-12-15 05:33] LABS: ALBUMIN 2.8 g/dl (3.4-5.0); ANION GAP 9 MMOL/L (8-16); BLOOD UREA NITROGEN 64.5 mg/dL (7-18); CO2 26 mmol/L (21-32)
[2021-12-15 05:36] LABS: CREATININE 3.3 mg/dL (0.55-1.3); SGOT/AST 15 U/L (15-37); SGPT/ALT 32 U/L (13-61)
[2021-12-15 05:38] LABS: BILIRUBIN,TOTAL 0.2 mg/dL (0.2-1)
[2021-12-15 05:39] LABS: ALK PHOS 96 U/L (45-117)
[2021-12-15 05:41] LABS: GLUCOSE,RANDOM 423 mg/dL (74-106)
[2021-12-15] MEDS ORDERED: SODIUM CHLORIDE 0.9% 500 ML INFUS.BAG IV ONE (06:00)
[2021-12-15] MEDS ORDERED: amLODIPine BESYLATE 5 MG TABLET (FP) PO ONE ×2 (06:42→08:57)
[2021-12-15] MEDS ORDERED: amLODIPine BESYLATE 5 MG TABLET (FP) ONE ×2 (06:54→09:07)
[2021-12-15] MEDS ORDERED: PANTOPRAZOLE 40 MG TABLET PO ONE (10:42)
[2021-12-15] MEDS: CARVEDILOL 6.25 MG TABLET (FP) PO SCH ×2 (10:47→21:59)
[2021-12-15] MEDS: INSULIN (NOVOLOG) ASPART 100 UNITS/ML 10ML VIAL SQ SCH (10:47)
[2021-12-15] MEDS: NIFEdipine E.R. 90 MG TABLET PO SCH (10:48)
[2021-12-15] MEDS: PANTOPRAZOLE 40 MG TABLET PO SCH (10:48)
[2021-12-15] MEDS: INSULIN SLIDING SCALE (NOVOLOG) 1 VIAL SQ SCH ×3 (12:40→22:06)
[2021-12-15] MEDS ORDERED: ATORVASTATIN CA 40 MG TABLET (FP) ONE (21:52)
[2021-12-15] MEDS ORDERED: INSULIN (LEVEMIR) 100 UNITS/ML UNITS SQ ONE (21:53)
[2021-12-15] MEDS ORDERED: ATORVASTATIN CA 40 MG TABLET (FP) PO SCH (22:00)
[2021-12-15] MEDS: INSULIN (LEVEMIR) 100 UNITS/ML UNITS SQ SCH (22:07)
[2021-12-16] MEDS: hydrALAZINE HCL 10 MG TABLET PO SCH ×4 (00:12→21:58)
[2021-12-16 01:07] VITALS: BMI 21.9
[2021-12-16] MEDS: INSULIN SLIDING SCALE (NOVOLOG) 1 VIAL SQ SCH ×4 (06:06→21:59)
[2021-12-16] MEDS ORDERED: LISINOPRIL 5 MG TABLET PO SCH (10:15)
[2021-12-16] MEDS: PANTOPRAZOLE 40 MG TABLET PO SCH (10:30)
[2021-12-16] MEDS: NIFEdipine E.R. 90 MG TABLET PO SCH (10:30)
[2021-12-16] MEDS: CARVEDILOL 6.25 MG TABLET (FP) PO SCH ×2 (10:30→21:56)
[2021-12-16] MEDS: INSULIN (NOVOLOG) ASPART 100 UNITS/ML 10ML VIAL SQ SCH (10:31)
[2021-12-16] MEDS ORDERED: ACETAMINOPHEN 325 MG TABLET (FP) PO ONE (12:30)
[2021-12-16 13:49] LABS: N-TERMINAL BNP 1907.5 pg/ml (5-125)
[2021-12-16] MEDS: ISOSORBIDE MONONITRATE 30 MG TAB.SR.24H (FP) PO SCH (14:01)
[2021-12-16] MEDS: EZETIMIBE 10 MG TABLET (FP) PO SCH (14:03)
[2021-12-16 14:04] LABS: BASO % 0.3 % (0-2.0); EOS % 3.6 % (0-4.5); HEMATOCRIT 42.1 % (35.4-49); MCH 27.5 pg (25.7-33.7); MCHC 33.3 g/dl (32.0-35.9); MEAN CELL VOLUME 82.5 fl (80-96); MEAN PLT VOLUME 9.1 fl (7.5-11.1); MONO % 8.7 % (3.8-10.2); NEUT % 71.4 % (42.8-82.8); PLATELET COUNT 221 10^3/uL (134-434); RBC 5.11 M/mm3 (4.00-5.60); RDW 14.4 % (11.9-15.9)
[2021-12-16 14:10] LABS: INR 0.86 (0.83-1.09); PROTHROMBIN TIME (PATIENT) 9.9 SEC (9.7-13.0)
[2021-12-16 14:15] LABS: BLOOD UREA NITROGEN 51.2 mg/dL (7-18); CALCIUM 8.7 mg/dL (8.5-10.1)
[2021-12-16 14:18] LABS: CREATININE 3.1 mg/dL (0.55-1.3)
[2021-12-16 14:21] LABS: BILIRUBIN,TOTAL 0.4 mg/dL (0.2-1); TOT PROT 6.5 g/dl (6.4-8.2)
[2021-12-16 17:35] LABS: EPI CELLS 30 /uL (0-25.1); HYALINE CASTS 2 /uL (0-3.1); PH,URINE 5.5 (5.0-8.0); URINE APPEARANCE CLEAR; URINE BACTERIA 59 /uL (0-1359); URINE BILIRUBIN NEGATIVE (NEGATIVE); URINE COLOR YELLOW; URINE GLUCOSE (UA) 2+ (NEGATIVE); URINE KETONE NEGATIVE (NEGATIVE); URINE LEUK ESTERASE 1+ (NEGATIVE); URINE NITRITE NEGATIVE (NEGATIVE); URINE PROTEIN 3+ (NEGATIVE); URINE RBC 10 /uL (0-23.9); URINE UROBILINOGEN 0.2 mg/dL (0.2-1.0); URINE WBC 119 /uL (0-25.8)
[2021-12-16] MEDS: INSULIN (LEVEMIR) 100 UNITS/ML UNITS SQ SCH (21:58)
[2021-12-16] MEDS: ATORVASTATIN CA 40 MG TABLET (FP) PO SCH (21:59)
[2021-12-17] MEDS ORDERED: MELATONIN 5 MG TABLETS PO ONE (01:45)
[2021-12-17] MEDS: ACETAMINOPHEN 325 MG TABLET (FP) PO PRN ×2 (02:00→14:47)
[2021-12-17 02:07] LABS: GLUCOSE,RANDOM 520 mg/dL (74-106)
[2021-12-17] MEDS: hydrALAZINE HCL 10 MG TABLET PO SCH ×3 (05:53→21:30)
[2021-12-17] MEDS: INSULIN SLIDING SCALE (NOVOLOG) 1 VIAL SQ SCH ×4 (06:04→22:17)
[2021-12-17 08:33] LABS: BASO % 0.5 % (0-2.0); EOS % 4.4 % (0-4.5); HEMATOCRIT 35.4 % (35.4-49); HEMOGLOBIN 11.9 GM/dL (11.7-16.9); LYMPH % 22.1 % (8-40); MCH 27.8 pg (25.7-33.7); MCHC 33.6 g/dl (32.0-35.9); MEAN CELL VOLUME 82.8 fl (80-96); MEAN PLT VOLUME 9.6 fl (7.5-11.1); MONO % 8.9 % (3.8-10.2); NEUT % 64.1 % (42.8-82.8); PLATELET COUNT 203 10^3/uL (134-434); RBC 4.28 M/mm3 (4.00-5.60); RDW 14.8 % (11.9-15.9)
[2021-12-17] MEDS: CARVEDILOL 6.25 MG TABLET (FP) PO SCH ×2 (10:10→21:31)
[2021-12-17] MEDS: PANTOPRAZOLE 40 MG TABLET PO SCH (10:10)
[2021-12-17] MEDS: ISOSORBIDE MONONITRATE 30 MG TAB.SR.24H (FP) PO SCH (10:10)
[2021-12-17] MEDS: NIFEdipine E.R. 90 MG TABLET PO SCH (10:10)
[2021-12-17] MEDS: EZETIMIBE 10 MG TABLET (FP) PO SCH (10:10)
[2021-12-17] MEDS: INSULIN (NOVOLOG) ASPART 100 UNITS/ML 10ML VIAL SQ SCH (10:16)
[2021-12-17 13:14] LABS: CALCIUM 8.3 mg/dL (8.5-10.1)
[2021-12-17 13:15] LABS: ALBUMIN 2.7 g/dl (3.4-5.0); BLOOD UREA NITROGEN 52.9 mg/dL (7-18)
[2021-12-17 13:18] LABS: CREATININE 3.3 mg/dL (0.55-1.3)
[2021-12-17 13:19] LABS: BILIRUBIN,TOTAL 0.3 mg/dL (0.2-1); TOT PROT 5.4 g/dl (6.4-8.2)
[2021-12-17] MEDS: ATORVASTATIN CA 40 MG TABLET (FP) PO SCH (21:31)
[2021-12-17] MEDS: INSULIN (LEVEMIR) 100 UNITS/ML UNITS SQ SCH (22:17)
[2021-12-18] MEDS ORDERED: MELATONIN 5 MG TABLETS PO PRN (00:28)
[2021-12-18] MEDS: hydrALAZINE HCL 25 MG TABLET (FP) PO SCH ×2 (06:16→14:51)
[2021-12-18] MEDS: INSULIN SLIDING SCALE (NOVOLOG) 1 VIAL SQ SCH ×2 (06:24→11:00)
[2021-12-18 07:56] LABS: BASO % 0.4 % (0-2.0); EOS % 4.1 % (0-4.5); HEMATOCRIT 36.1 % (35.4-49); HEMOGLOBIN 12.2 GM/dL (11.7-16.9); LYMPH % 18.4 % (8-40); MCH 27.8 pg (25.7-33.7); MCHC 33.8 g/dl (32.0-35.9); MEAN CELL VOLUME 82.2 fl (80-96); MEAN PLT VOLUME 9.2 fl (7.5-11.1); MONO % 9.8 % (3.8-10.2); NEUT % 67.3 % (42.8-82.8); PLATELET COUNT 194 10^3/uL (134-434); RBC 4.39 M/mm3 (4.00-5.60); RDW 14.5 % (11.9-15.9); WHITE BLOOD COUNT 5.6 K/mm3 (4.0-10.0)
[2021-12-18 08:53] LABS: BLOOD UREA NITROGEN 48.3 mg/dL (7-18); CALCIUM 8.2 mg/dL (8.5-10.1)
[2021-12-18 08:54] LABS: ALBUMIN 2.7 g/dl (3.4-5.0)
[2021-12-18 08:56] LABS: CREATININE 3.2 mg/dL (0.55-1.3)
[2021-12-18 08:58] LABS: BILIRUBIN,TOTAL 0.3 mg/dL (0.2-1); TOT PROT 5.6 g/dl (6.4-8.2)
[2021-12-18] MEDS: ISOSORBIDE MONONITRATE 30 MG TAB.SR.24H (FP) PO SCH (09:54)
[2021-12-18] MEDS: NIFEdipine E.R. 90 MG TABLET PO SCH (09:54)
[2021-12-18] MEDS: CARVEDILOL 6.25 MG TABLET (FP) PO SCH (10:00)
[2021-12-18] MEDS: INSULIN (NOVOLOG) ASPART 100 UNITS/ML 10ML VIAL SQ SCH (10:00)
[2021-12-18 14:33] VITALS: BP 161/81; PULSE 72; TEMP 97.7
[2021-12-18] MEDS: PANTOPRAZOLE 40 MG TABLET PO SCH (14:51)
[2021-12-18] MEDS: EZETIMIBE 10 MG TABLET (FP) PO SCH (14:51)
[2021-12-19 16:08] LABS: ATYPICAL pANCA <1:20 titer (Neg:<1:20); C-ANCA <1:20 titer (Neg:<1:20)
== END 2021-12-18 16:48 | disposition home or self-care (01) | DRG 305 ==
LOC: JER 02:02 → JERBED 06:02 → J4W 23:36
PROVIDERS: ADMIT Internal Medicine; ATTEND Internal Medicine
DX: I16.1 Hypertensive emergency (principal); N17.9 Acute kidney failure, unspecified; E78.5 Hyperlipidemia, unspecified; R04.0 Epistaxis; G40.909 Epilepsy, unspecified, not intractable, without status epilepticus; I12.9 Hypertensive chronic kidney disease with stage 1 through stage 4 chronic kidney disease, or unspecified chronic kidney disease; E11.22 Type 2 diabetes mellitus with diabetic chronic kidney disease; N18.9 Chronic kidney disease, unspecified
CPT/HCPCS: 36415; 70450-TC; 76775-TC; 78452-TC; 80053; 80061; 81003; 82947; 82962; 83036; 83520; 83880; 84155; 84165; 84443; 85025; 85610; 85730; 86038; 86225; 86256; 93005; 93010; 93017; 93306-TC; 99285-25; A9502; C9803-CS; U0003; U0005

== ENCOUNTER 2022-02-15 21:57 | Emergency (ER) | payer OTHER ==
[2022-02-15 22:11] VITALS: RESP 18; TEMP 98
[2022-02-15 23:18] LABS: BASO % 0.5 % (0-2.0); EOS % 2.3 % (0-4.5); HEMATOCRIT 35.8 % (35.4-49); HEMOGLOBIN 11.8 GM/dL (11.7-16.9); LYMPH % 17.4 % (8-40); MCH 28.1 pg (25.7-33.7); MEAN CELL VOLUME 85.3 fl (80-96); MEAN PLT VOLUME 9.2 fl (7.5-11.1); MONO % 8.6 % (3.8-10.2); NEUT % 71.2 % (42.8-82.8); PLATELET COUNT 169 10^3/uL (134-434); WHITE BLOOD COUNT 5.2 K/mm3 (4.0-10.0)
[2022-02-15 23:25] LABS: INR 0.85 (0.83-1.09); PROTHROMBIN TIME (PATIENT) 9.8 SEC (9.7-13.0)
[2022-02-15 23:28] LABS: ACTIVATED PTT 35.6 SECONDS (25.2-36.5)
[2022-02-15 23:36] LABS: CHLORIDE 101 mmol/L (98-107); SODIUM 134 mmol/L (136-145)
[2022-02-15 23:38] LABS: ALBUMIN 3.1 g/dl (3.4-5.0); ANION GAP 13 MMOL/L (8-16); CALCIUM 8.2 mg/dL (8.5-10.1); CO2 20 mmol/L (21-32)
[2022-02-15 23:41] LABS: CREATININE 3.3 mg/dL (0.55-1.3); SGOT/AST 22 U/L (15-37); SGPT/ALT 37 U/L (13-61)
[2022-02-15 23:43] LABS: BILIRUBIN,TOTAL 0.4 mg/dL (0.2-1)
[2022-02-15 23:44] LABS: ALK PHOS 86 U/L (45-117); GLUCOSE,RANDOM 427 mg/dL (74-106)
[2022-02-16] MEDS ORDERED: Insulin (LOG) Aspart 100 UNITS/ML VIAL SQ ONE (00:07)
[2022-02-16 00:34] VITALS: BP 194/84; PULSE 84
== END 2022-02-16 01:52 | disposition home or self-care (01) ==
LOC: JER 21:57
DX: R04.0 Epistaxis (principal)
CPT/HCPCS: 36415; 71046-TC-FY; 80053; 82962; 84484; 85025; 85610; 85730; 93005; 93010; 99284-25

== ENCOUNTER 2022-04-29 11:07 | Emergency (ER) | payer OTHER ==
[2022-04-29 11:17] VITALS: PULSE 87; RESP 18; TEMP 97.6; BMI 20.5
[2022-04-29] MEDS ORDERED: OXYMETAZOLINE 0.05% NASAL SOLUTION 15 ML BOTTLE NS ONE (12:04)
[2022-04-29 13:03] VITALS: BP 145/67
== END 2022-04-29 13:30 | disposition home or self-care (01) ==
LOC: JER 11:07
DX: R04.0 Epistaxis (principal)
CPT/HCPCS: 99283-25

== ENCOUNTER 2022-11-23 21:22 | Observation (INO) | payer OTHER, BC ==
[2022-11-23 21:29] VITALS: BMI 22.1
[2022-11-23 23:13] LABS: BASO % 0.3 % (0-2.0); EOS % 1.1 % (0-4.5); HEMATOCRIT 34.9 % (35.4-49); HEMOGLOBIN 11.7 GM/dL (11.7-16.9); LYMPH % 11.1 % (8-40); MCH 25.9 pg (25.7-33.7); MCHC 33.4 g/dl (32.0-35.9); MEAN CELL VOLUME 77.6 fl (80-96); MEAN PLT VOLUME 9.4 fl (7.5-11.1); MONO % 6.5 % (3.8-10.2); PLATELET COUNT 245 10^3/uL (134-434); WHITE BLOOD COUNT 8.5 K/mm3 (4.0-10.0)
[2022-11-23 23:19] LABS: INR 0.91 (0.83-1.09); PROTHROMBIN TIME (PATIENT) 10.6 SEC (9.7-13.0)
[2022-11-23 23:22] LABS: ACTIVATED PTT 37.6 SECONDS (25.2-36.5)
[2022-11-23 23:39] LABS: CALCIUM 8.7 mg/dL (8.5-10.1)
[2022-11-23 23:40] LABS: ALBUMIN 3.8 g/dl (3.4-5.0); BLOOD UREA NITROGEN 97.2 mg/dL (7-18); MAGNESIUM 2.6 mg/dL (1.8-2.4)
[2022-11-23 23:43] LABS: CREATININE 5.8 mg/dL (0.55-1.3); PHOSPHOROUS 5.6 mg/dL (2.5-4.9)
[2022-11-23 23:44] LABS: BILIRUBIN,TOTAL 0.3 mg/dL (0.2-1)
[2022-11-23 23:45] LABS: TOT PROT 7.4 g/dl (6.4-8.2)
[2022-11-24] MEDS ORDERED: ACETAMINOPHEN 500 MG TABLET (FP) PO ONE (00:03)
[2022-11-24] MEDS ORDERED: ACETAMINOPHEN 500 MG TABLET (FP) ONE (00:13)
[2022-11-24] MEDS ORDERED: SODIUM CHLORIDE 0.45% 1,000 ML IV SCH (00:15)
[2022-11-24 03:04] VITALS: RESP 18
[2022-11-24] MEDS ORDERED: ACETAMINOPHEN 1000 MG/100 ML BAG IVPB PRN (03:10)
[2022-11-24] MEDS: hydrALAZINE HCL 25 MG TABLET (FP) PO SCH ×2 (05:53→14:47)
[2022-11-24] MEDS ORDERED: ISOSORBIDE MONONITRATE 30 MG TAB.SR.24H (FP) PO SCH (10:00)
[2022-11-24] MEDS ORDERED: NIFEdipine E.R 60 MG TABLET PO SCH (10:00)
[2022-11-24] MEDS ORDERED: ASPIRIN 81 MG CHEWABLE TABLETS PO SCH (10:00)
[2022-11-24] MEDS ORDERED: PANTOPRAZOLE 40 MG TABLET PO SCH (10:00)
[2022-11-24] MEDS ORDERED: CARVEDILOL 6.25 MG TABLET (FP) PO SCH (10:00)
[2022-11-24] MEDS ORDERED: HEPARIN NA (PORCINE) 5,000 UNITS/ML 1ML VIAL SQ SCH (10:00)
[2022-11-24] MEDS ORDERED: EZETIMIBE 10 MG TABLET (FP) PO SCH (10:00)
[2022-11-24 10:01] LABS: POTASSIUM 3.3 mmol/L (3.5-5.1)
[2022-11-24 10:07] LABS: CALCIUM 7.7 mg/dL (8.5-10.1)
[2022-11-24 10:08] LABS: BLOOD UREA NITROGEN 89.3 mg/dL (7-18)
[2022-11-24 10:11] LABS: CREATININE 5.2 mg/dL (0.55-1.3)
[2022-11-24 10:12] LABS: BILIRUBIN,TOTAL 0.4 mg/dL (0.2-1)
[2022-11-24 10:13] LABS: TOT PROT 5.9 g/dl (6.4-8.2)
[2022-11-24 10:32] LABS: BASO % 0.5 % (0-2.0); EOS % 2.5 % (0-4.5); HEMATOCRIT 30.4 % (35.4-49); HEMOGLOBIN 10.1 GM/dL (11.7-16.9); LYMPH % 23.1 % (8-40); MCH 26.3 pg (25.7-33.7); MCHC 33.2 g/dl (32.0-35.9); MEAN CELL VOLUME 79.1 fl (80-96); MEAN PLT VOLUME 10.1 fl (7.5-11.1); MONO % 9.5 % (3.8-10.2); NEUT % 64.4 % (42.8-82.8); PLATELET COUNT 191 10^3/uL (134-434); RBC 3.84 M/mm3 (4.00-5.60); RDW 16.5 % (11.9-15.9); WHITE BLOOD COUNT 5.7 K/mm3 (4.0-10.0)
[2022-11-24] MEDS ORDERED: POTASSIUM CHLORIDE ORAL LIQUID 20 MEQ/15 ML PO ONE (14:00)
[2022-11-24 15:05] VITALS: BP 162/82; PULSE 86; TEMP 97.4
[2022-11-24] MEDS ORDERED: INSULIN (NOVOLOG) ASPART 100 UNITS/ML 10ML VIAL SQ ONE (15:30)
[2022-11-24] MEDS ORDERED: INSULIN SLIDING SCALE (NOVOLOG) 1 VIAL SQ SCH (16:30)
[2022-11-24] MEDS ORDERED: ATORVASTATIN CA 40 MG TABLET (FP) PO SCH (22:00)
[2022-11-24] MEDS ORDERED: INSULIN (LEVEMIR) 100 UNITS/ML UNITS SQ SCH (22:00)
== END 2022-11-24 16:57 | disposition home or self-care (01) ==
LOC: JER 21:22 → UNDOADMOB 11-24 00:11 → JERBED 11-24 00:11 → INTOOBSV 11-24 00:11 → JERBED 11-24 02:45 → J5S 11-24 02:45 → JERBED 11-24 15:17 → J5S 11-24 15:17 → UNDODISOB 11-24 16:57
PROVIDERS: ADMIT Internal Medicine; ATTEND Internal Medicine
DX: E87.6 Hypokalemia (principal); G40.909 Epilepsy, unspecified, not intractable, without status epilepticus; E11.22 Type 2 diabetes mellitus with diabetic chronic kidney disease; I13.10 Hypertensive heart and chronic kidney disease without heart failure, with stage 1 through stage 4 chronic kidney disease, or unspecified chronic kidney disease; N18.9 Chronic kidney disease, unspecified; N17.9 Acute kidney failure, unspecified; N17.8 Other acute kidney failure; Z86.73 Personal history of transient ischemic attack (TIA), and cerebral infarction without residual deficits
CPT/HCPCS: 36415; 71045-TC-FY; 80053; 82550; 82553; 82962; 83735; 84100; 85025; 85610; 85730; 93005; 93010; 93970-TC; 99285-25; G0378; J1644

== ENCOUNTER 2022-12-25 05:13 | Day surgery (SDC) | payer OTHER, BC ==
[2022-12-22 15:22] VITALS: BMI 21.9
[2022-12-25] MEDS ORDERED: INSULIN (NOVOLOG) ASPART 100 UNITS/ML 10ML VIAL ONE (14:04)
[2022-12-25] MEDS ORDERED: INSULIN (NOVOLOG) ASPART 100 UNITS/ML 10ML VIAL SQ ONE ×3 (14:18→15:34)
[2022-12-25] MEDS ORDERED: PAPAVERINE HCL 30 MG/1 ML 10 ML VIAL NR ONE ×2 (14:48→19:22)
[2022-12-25] MEDS ORDERED: HEPARIN NA (PORCINE) 5,000 UNITS/ML 1ML VIAL ONE (17:53)
[2022-12-25] MEDS ORDERED: MIDAZOLAM HCL 2 MG/2 ML SINGLE DOSE VIAL ONE (19:04)
[2022-12-25] MEDS ORDERED: PROPOFOL 80 ML ONE (19:07)
[2022-12-25] MEDS ORDERED: ceFAZolin SODIUM 1 GM VIAL IVPB ONE (19:20)
[2022-12-25] MEDS ORDERED: ONDANSETRON 4 MG/2 ML VIAL ONE (19:21)
[2022-12-25] MEDS ORDERED: HEPARIN NA (PORCINE) 5,000 UNITS/ML 1ML VIAL SQ ONE (19:31)
[2022-12-25] MEDS ORDERED: LIDOCAINE HCL 1% PRESERVATIVE FREE - 30ML VIAL INF ONE (19:31)
[2022-12-25] MEDS ORDERED: ONDANSETRON 4 MG/2 ML VIAL IVPUSH PRN (20:22)
[2022-12-25] MEDS ORDERED: LACTATED RINGERS SOLUTION 1,000 ML IV SCH (20:30)
[2022-12-25 20:59] VITALS: RESP 18
[2022-12-25] MEDS: hydrALAZINE HCL 25 MG TABLET (FP) PO SCH (21:32)
[2022-12-25] MEDS: CARVEDILOL 6.25 MG TABLET (FP) PO SCH (21:32)
[2022-12-25] MEDS ORDERED: INSULIN (LEVEMIR) 100 UNITS/ML UNITS SQ SCH (22:00)
[2022-12-25] MEDS ORDERED: ATORVASTATIN CA 40 MG TABLET (FP) PO SCH (22:00)
[2022-12-26] MEDS: INSULIN SLIDING SCALE (NOVOLOG) 1 VIAL SQ SCH ×4 (01:49→11:57)
[2022-12-26] MEDS: hydrALAZINE HCL 25 MG TABLET (FP) PO SCH ×2 (07:17→14:04)
[2022-12-26] MEDS: CARVEDILOL 6.25 MG TABLET (FP) PO SCH (09:57)
[2022-12-26] MEDS ORDERED: NIFEdipine E.R. 90 MG TABLET PO SCH (10:00)
[2022-12-26] MEDS ORDERED: ASPIRIN 81 MG CHEWABLE TABLETS PO SCH (10:00)
[2022-12-26] MEDS ORDERED: ISOSORBIDE MONONITRATE 30 MG TAB.SR.24H (FP) PO SCH (10:00)
[2022-12-26] MEDS ORDERED: PANTOPRAZOLE 40 MG TABLET PO SCH (10:00)
[2022-12-26] MEDS ORDERED: INSULIN (NOVOLOG) ASPART 100 UNITS/ML 10ML VIAL ONE (11:47)
[2022-12-26 15:30] VITALS: BP 152/74; PULSE 89; TEMP 98.4
== END 2022-12-26 15:38 | disposition home or self-care (01) ==
LOC: JASU-SURG 05:13 → J8W 12-26 04:00 → JASUSAT 12-26 15:38
PROVIDERS: ATTEND Surgery
PROC: 031C0ZF Bypass Left Radial Artery to Lower Arm Vein, Open Approach (ICD-10-PCS; principal; 2022-12-25 15:30)
DX: I12.0 Hypertensive chronic kidney disease with stage 5 chronic kidney disease or end stage renal disease (principal); E11.22 Type 2 diabetes mellitus with diabetic chronic kidney disease; N18.6 End stage renal disease; Z99.2 Dependence on renal dialysis; Z79.4 Long term (current) use of insulin
CPT/HCPCS: 82962; 94760; J1644

== ENCOUNTER 2023-05-19 01:33 | Inpatient (IN) | payer OTHER, BC ==
[2023-05-19 02:05] LABS: BASO % 0.5 % (0-2.0); EOS % 1.2 % (0-4.5); HEMATOCRIT 29.5 % (35.4-49); HEMOGLOBIN 9.4 GM/dL (11.7-16.9); LYMPH % 10.4 % (8-40); MCH 23.9 pg (25.7-33.7); MCHC 31.8 g/dl (32.0-35.9); MEAN CELL VOLUME 75.3 fl (80-96); MEAN PLT VOLUME 8.9 fl (7.5-11.1); MONO % 14.5 % (3.8-10.2); NEUT % 73.4 % (42.8-82.8); PLATELET COUNT 228 10^3/uL (134-434); RBC 3.91 M/mm3 (4.00-5.60); RDW 17.5 % (11.9-15.9)
[2023-05-19 02:26] LABS: CHLORIDE 93 mmol/L (98-107); POTASSIUM 3.8 mmol/L (3.5-5.1); SODIUM 131 mmol/L (136-145)
[2023-05-19 02:29] LABS: ALBUMIN 2.4 g/dl (3.4-5.0); ANION GAP 12 mmol/L (4-13); BLOOD UREA NITROGEN 70.6 mg/dL (7-18); CO2 25 mmol/L (21-32)
[2023-05-19 02:31] LABS: SGPT/ALT 29 U/L (13-61)
[2023-05-19 02:32] LABS: CREATININE 6.2 mg/dL (0.55-1.3); SGOT/AST 16 U/L (15-37)
[2023-05-19 02:33] LABS: BILIRUBIN,TOTAL 0.3 mg/dL (0.2-1); TOT PROT 5.9 g/dl (6.4-8.2)
[2023-05-19 02:34] LABS: ALK PHOS 95 U/L (45-117)
[2023-05-19 02:41] LABS: CALCIUM 6.7 mg/dL (8.5-10.1); GLUCOSE,RANDOM 545 mg/dL (74-106); LIPASE 1499 U/L (73-393)
[2023-05-19 03:37] LABS: VENOUS BASE EXCESS -2.5 mmol/L (-2-2); VENOUS O2 SATURATION 69.7 % (70-80); VENOUS PCO2 41.8 mmHg (38-52); VENOUS PH 7.356 (7.310-7.410)
[2023-05-19] MEDS ORDERED: INSULIN REGULAR HUMAN 100 UNITS/ML *VIAL SQ ONE ×2 (03:39→05:48)
[2023-05-19] MEDS ORDERED: ACETAMINOPHEN 1000 MG/100 ML BAG IVPB ONE (06:46)
[2023-05-19] MEDS ORDERED: ACETAMINOPHEN INJECTION 100 ML IVPB ONE (06:47)
[2023-05-19] MEDS ORDERED: CEFTRIAXONE 1 GM in DEXTROSE 5%-WATER - 50 ML IVPB SCH (11:15)
[2023-05-19] MEDS ORDERED: SODIUM CHLORIDE 0.45% 1,000 ML IV SCH (11:15)
[2023-05-19] MEDS ORDERED: CARVEDILOL 6.25 MG TABLET (FP) ONE (11:19)
[2023-05-19] MEDS ORDERED: CEFTRIAXONE 1 GM/50 ML BAG ONE (11:20)
[2023-05-19] MEDS: CARVEDILOL 6.25 MG TABLET (FP) PO SCH ×2 (11:31→21:19)
[2023-05-19] MEDS ORDERED: hydrALAZINE HCL 25 MG TABLET (FP) ONE (14:13)
[2023-05-19] MEDS: hydrALAZINE HCL 25 MG TABLET (FP) PO SCH ×2 (14:18→21:19)
[2023-05-19] MEDS: INSULIN SLIDING SCALE (NOVOLOG) 1 VIAL SQ SCH ×2 (16:31→21:22)
[2023-05-19] MEDS ORDERED: PIPERACILLIN/TAZOB 2.25 GM 2.25 GM in DEXTROSE 5%-WATER - 50 ML IVPB SCH (18:00)
[2023-05-19] MEDS ORDERED: hydrALAZINE HCL 20 MG/ML VIAL IVPUSH ONE (20:30)
[2023-05-19] MEDS: ACETAMINOPHEN 325 MG TABLET (FP) PO PRN (20:49)
[2023-05-19] MEDS ORDERED: ATORVASTATIN CA 40 MG TABLET (FP) PO SCH (22:00)
[2023-05-20 05:12] VITALS: BMI 21.3
[2023-05-20] MEDS: INSULIN (LEVEMIR) 100 UNITS/ML UNITS SQ SCH (06:24)
[2023-05-20] MEDS: hydrALAZINE HCL 25 MG TABLET (FP) PO SCH ×3 (06:24→22:34)
[2023-05-20] MEDS: INSULIN SLIDING SCALE (NOVOLOG) 1 VIAL SQ SCH ×4 (06:25→22:36)
[2023-05-20 08:25] LABS: BASO % 0.5 % (0-2.0); EOS % 0.3 % (0-4.5); HEMATOCRIT 29.7 % (35.4-49); HEMOGLOBIN 9.6 GM/dL (11.7-16.9); LYMPH % 5.4 % (8-40); MCH 24.3 pg (25.7-33.7); MCHC 32.4 g/dl (32.0-35.9); MEAN CELL VOLUME 75.1 fl (80-96); MEAN PLT VOLUME 9.4 fl (7.5-11.1); MONO % 8.8 % (3.8-10.2); PLATELET COUNT 236 10^3/uL (134-434); RBC 3.95 M/mm3 (4.00-5.60); RDW 17.9 % (11.9-15.9); WHITE BLOOD COUNT 6.3 K/mm3 (4.0-10.0)
[2023-05-20 08:55] LABS: CHLORIDE 94 mmol/L (98-107); POTASSIUM 3.5 mmol/L (3.5-5.1); SODIUM 132 mmol/L (136-145)
[2023-05-20 09:03] LABS: CHOLESTEROL 392 mg/dL (50-200)
[2023-05-20 09:04] LABS: LDL CHOLESTEROL (ONLY SJRH) 252 mg/dL (5-100)
[2023-05-20 09:06] LABS: HDL CHOLESTEROL 57 mg/dL (40-60)
[2023-05-20 09:13] LABS: ALBUMIN 2.1 g/dl (3.4-5.0); ANION GAP 21 mmol/L (4-13); BLOOD UREA NITROGEN 70.2 mg/dL (7-18); CO2 17 mmol/L (21-32); GLUCOSE,RANDOM 283 mg/dL (74-106)
[2023-05-20 09:16] LABS: CREATININE 6.1 mg/dL (0.55-1.3); SGOT/AST 28 U/L (15-37); SGPT/ALT 28 U/L (13-61)
[2023-05-20 09:18] LABS: BILIRUBIN,TOTAL 0.8 mg/dL (0.2-1); TOT PROT 5.6 g/dl (6.4-8.2)
[2023-05-20 09:19] LABS: ALK PHOS 86 U/L (45-117); CALCIUM 6.9 mg/dL (8.5-10.1)
[2023-05-20] MEDS ORDERED: ENOXAPARIN NA (PORCINE) 40 MG/0.4 ML DISP.SYRIN SQ SCH (10:00)
[2023-05-20] MEDS: CEFTRIAXONE 1 GM in DEXTROSE 5%-WATER - 50 ML IVPB SCH (10:36)
[2023-05-20] MEDS: CARVEDILOL 6.25 MG TABLET (FP) PO SCH ×2 (10:36→22:34)
[2023-05-20] MEDS: PANTOPRAZOLE 40 MG TABLET PO SCH (10:36)
[2023-05-20] MEDS: ASPIRIN 81 MG CHEWABLE TABLETS PO SCH (10:36)
[2023-05-20] MEDS: ISOSORBIDE MONONITRATE 30 MG TAB.SR.24H (FP) PO SCH (10:36)
[2023-05-20] MEDS: NIFEdipine E.R. 90 MG TABLET PO SCH (10:37)
[2023-05-20] MEDS: SODIUM BICARBONATE 650 MG TABLET PO SCH ×2 (12:44→22:34)
[2023-05-20] MEDS: EZETIMIBE 10 MG TABLET (FP) PO SCH (15:47)
[2023-05-20] MEDS: HEPARIN NA (PORCINE) 5,000 UNITS/ML 1ML VIAL SQ SCH ×2 (15:47→22:33)
[2023-05-20] MEDS: ATORVASTATIN CA 80 MG TABLET (FP) PO SCH (22:33)
[2023-05-21] MEDS: hydrALAZINE HCL 25 MG TABLET (FP) PO SCH ×3 (05:50→21:24)
[2023-05-21] MEDS: INSULIN SLIDING SCALE (NOVOLOG) 1 VIAL SQ SCH ×4 (06:18→21:28)
[2023-05-21] MEDS: INSULIN (LEVEMIR) 100 UNITS/ML UNITS SQ SCH (06:19)
[2023-05-21 09:17] LABS: BASO % 0.4 % (0-2.0); EOS % 1.7 % (0-4.5); HEMOGLOBIN 9.1 GM/dL (11.7-16.9); LYMPH % 14.1 % (8-40); MCH 24.1 pg (25.7-33.7); MCHC 32.3 g/dl (32.0-35.9); MEAN CELL VOLUME 74.5 fl (80-96); MEAN PLT VOLUME 8.8 fl (7.5-11.1); NEUT % 67.8 % (42.8-82.8); PLATELET COUNT 234 10^3/uL (134-434); RBC 3.76 M/mm3 (4.00-5.60); WHITE BLOOD COUNT 5.5 K/mm3 (4.0-10.0)
[2023-05-21 09:18] LABS: POTASSIUM 3.5 mmol/L (3.5-5.1); SODIUM 134 mmol/L (136-145)
[2023-05-21 09:25] LABS: BLOOD UREA NITROGEN 80.1 mg/dL (7-18); CO2 22 mmol/L (21-32); GLUCOSE,RANDOM 170 mg/dL (74-106)
[2023-05-21 09:28] LABS: CREATININE 7.3 mg/dL (0.55-1.3); SGOT/AST 32 U/L (15-37); SGPT/ALT 30 U/L (13-61)
[2023-05-21 09:29] LABS: ALK PHOS 79 U/L (45-117); BILIRUBIN,TOTAL 0.3 mg/dL (0.2-1); TOT PROT 5.6 g/dl (6.4-8.2)
[2023-05-21] MEDS: CEFTRIAXONE 1 GM in DEXTROSE 5%-WATER - 50 ML IVPB SCH (09:30)
[2023-05-21 09:31] LABS: ANION GAP 16 mmol/L (4-13); CALCIUM 6.9 mg/dL (8.5-10.1); CHLORIDE 96 mmol/L (98-107)
[2023-05-21] MEDS: HEPARIN NA (PORCINE) 5,000 UNITS/ML 1ML VIAL SQ SCH ×2 (09:31→21:23)
[2023-05-21] MEDS: PANTOPRAZOLE 40 MG TABLET PO SCH (09:32)
[2023-05-21] MEDS: CARVEDILOL 6.25 MG TABLET (FP) PO SCH ×2 (09:33→21:24)
[2023-05-21] MEDS: EZETIMIBE 10 MG TABLET (FP) PO SCH (09:33)
[2023-05-21] MEDS: NIFEdipine E.R. 90 MG TABLET PO SCH (09:33)
[2023-05-21] MEDS: ISOSORBIDE MONONITRATE 30 MG TAB.SR.24H (FP) PO SCH (09:33)
[2023-05-21] MEDS: SODIUM BICARBONATE 650 MG TABLET PO SCH ×2 (09:33→21:24)
[2023-05-21] MEDS: ASPIRIN 81 MG CHEWABLE TABLETS PO SCH (09:33)
[2023-05-21 15:23] LABS: INR 0.95 (0.83-1.09)
[2023-05-21] MEDS: INSULIN (NOVOLOG) ASPART 100 UNITS/ML 10ML VIAL SQ SCH (17:03)
[2023-05-21] MEDS: ATORVASTATIN CA 80 MG TABLET (FP) PO SCH (21:24)
[2023-05-21] MEDS: ACETAMINOPHEN 325 MG TABLET (FP) PO PRN (21:30)
[2023-05-22] MEDS: hydrALAZINE HCL 25 MG TABLET (FP) PO SCH ×3 (06:24→22:44)
[2023-05-22] MEDS: INSULIN SLIDING SCALE (NOVOLOG) 1 VIAL SQ SCH ×4 (06:26→22:45)
[2023-05-22] MEDS: INSULIN (NOVOLOG) ASPART 100 UNITS/ML 10ML VIAL SQ SCH ×3 (06:26→17:23)
[2023-05-22] MEDS: INSULIN (LEVEMIR) 100 UNITS/ML UNITS SQ SCH (06:27)
[2023-05-22] MEDS: CARVEDILOL 6.25 MG TABLET (FP) PO SCH ×2 (11:26→22:45)
[2023-05-22] MEDS: PANTOPRAZOLE 40 MG TABLET PO SCH (11:27)
[2023-05-22] MEDS: ASPIRIN 81 MG CHEWABLE TABLETS PO SCH (11:27)
[2023-05-22] MEDS: ISOSORBIDE MONONITRATE 30 MG TAB.SR.24H (FP) PO SCH (11:27)
[2023-05-22] MEDS: EZETIMIBE 10 MG TABLET (FP) PO SCH (11:27)
[2023-05-22] MEDS: HEPARIN NA (PORCINE) 5,000 UNITS/ML 1ML VIAL SQ SCH ×2 (11:27→22:45)
[2023-05-22] MEDS: SODIUM BICARBONATE 650 MG TABLET PO SCH ×2 (11:27→22:44)
[2023-05-22] MEDS: CEFTRIAXONE 1 GM in DEXTROSE 5%-WATER - 50 ML IVPB SCH (11:28)
[2023-05-22] MEDS: NIFEdipine E.R. 90 MG TABLET PO SCH (11:28)
[2023-05-22] MEDS: ALBUTEROL SO4 2.5/IPRATROPIUM 0.5 INH SOL 3 ML VIAL.NEB. NEB SCH ×3 (12:31→19:55)
[2023-05-22] MEDS: methylPREDNISolone NA SUCC 40 MG/1 ML VIAL IVPUSH SCH ×2 (13:23→17:26)
[2023-05-22] MEDS: ATORVASTATIN CA 80 MG TABLET (FP) PO SCH (22:45)
[2023-05-23] MEDS: methylPREDNISolone NA SUCC 40 MG/1 ML VIAL IVPUSH SCH ×2 (01:08→12:02)
[2023-05-23] MEDS: INSULIN SLIDING SCALE (NOVOLOG) 1 VIAL SQ SCH ×4 (06:23→21:06)
[2023-05-23] MEDS: INSULIN (NOVOLOG) ASPART 100 UNITS/ML 10ML VIAL SQ SCH ×3 (06:24→17:16)
[2023-05-23] MEDS: INSULIN (LEVEMIR) 100 UNITS/ML UNITS SQ SCH (06:25)
[2023-05-23] MEDS: hydrALAZINE HCL 25 MG TABLET (FP) PO SCH ×3 (06:25→21:10)
[2023-05-23] MEDS: ALBUTEROL SO4 2.5/IPRATROPIUM 0.5 INH SOL 3 ML VIAL.NEB. NEB SCH ×4 (07:16→20:14)
[2023-05-23 09:09] LABS: HEMATOCRIT 26.8 % (35.4-49); HEMOGLOBIN 8.7 GM/dL (11.7-16.9); MCH 24.2 pg (25.7-33.7); MCHC 32.5 g/dl (32.0-35.9); MEAN CELL VOLUME 74.6 fl (80-96); MEAN PLT VOLUME 8.6 fl (7.5-11.1); PLATELET COUNT 236 10^3/uL (134-434); RBC 3.59 M/mm3 (4.00-5.60)
[2023-05-23 09:23] LABS: CHLORIDE 91 mmol/L (98-107); POTASSIUM 3.8 mmol/L (3.5-5.1); SODIUM 128 mmol/L (136-145)
[2023-05-23 09:29] LABS: ALBUMIN 2.2 g/dl (3.4-5.0); ANION GAP 18 mmol/L (4-13); CO2 18 mmol/L (21-32)
[2023-05-23 09:32] LABS: SGOT/AST 24 U/L (15-37); SGPT/ALT 30 U/L (13-61)
[2023-05-23 09:34] LABS: ALK PHOS 82 U/L (45-117); BILIRUBIN,TOTAL 0.2 mg/dL (0.2-1); TOT PROT 5.8 g/dl (6.4-8.2)
[2023-05-23 10:05] LABS: BLOOD UREA NITROGEN 107.6 mg/dL (7-18); CALCIUM 6.7 mg/dL (8.5-10.1); CREATININE 10.3 mg/dL (0.55-1.3); GLUCOSE,RANDOM 495 mg/dL (74-106)
[2023-05-23] MEDS: EZETIMIBE 10 MG TABLET (FP) PO SCH (10:32)
[2023-05-23] MEDS: PANTOPRAZOLE 40 MG TABLET PO SCH (10:32)
[2023-05-23] MEDS: CARVEDILOL 6.25 MG TABLET (FP) PO SCH ×2 (10:32→21:10)
[2023-05-23] MEDS: CEFTRIAXONE 1 GM in DEXTROSE 5%-WATER - 50 ML IVPB SCH (10:32)
[2023-05-23] MEDS: ISOSORBIDE MONONITRATE 30 MG TAB.SR.24H (FP) PO SCH (10:33)
[2023-05-23] MEDS: HEPARIN NA (PORCINE) 5,000 UNITS/ML 1ML VIAL SQ SCH ×2 (10:33→21:10)
[2023-05-23] MEDS: SODIUM BICARBONATE 650 MG TABLET PO SCH ×2 (10:33→21:10)
[2023-05-23 10:41] LABS: ANISOCYTOSIS 0; HELMET CELLS 0; HOWELL-JOLLY BODIES 0; MACROCYTOSIS 0; OVALOCYTE 0; ROULEAU 0; SICKELED CELLS 0; TARGET CELLS 0; TEAR DROP CELLS 0; TOXIC GRANULATION 0
[2023-05-23] MEDS: NIFEdipine E.R. 90 MG TABLET PO SCH (10:47)
[2023-05-23] MEDS ORDERED: SODIUM CHLORIDE 250 ML IV PRN (19:39)
[2023-05-23] MEDS: ATORVASTATIN CA 80 MG TABLET (FP) PO SCH (21:10)
[2023-05-23] MEDS: ACETAMINOPHEN 325 MG TABLET (FP) PO PRN (21:19)
[2023-05-23] MEDS ORDERED: INSULIN (LEVEMIR) 100 UNITS/ML UNITS SQ ONE (21:30)
[2023-05-24] MEDS: INSULIN (LEVEMIR) 100 UNITS/ML UNITS SQ SCH (06:27)
[2023-05-24] MEDS: hydrALAZINE HCL 25 MG TABLET (FP) PO SCH ×3 (06:27→21:19)
[2023-05-24] MEDS: INSULIN (NOVOLOG) ASPART 100 UNITS/ML 10ML VIAL SQ SCH ×3 (06:28→16:34)
[2023-05-24] MEDS: INSULIN SLIDING SCALE (NOVOLOG) 1 VIAL SQ SCH ×4 (06:28→21:20)
[2023-05-24] MEDS: ALBUTEROL SO4 2.5/IPRATROPIUM 0.5 INH SOL 3 ML VIAL.NEB. NEB SCH ×4 (07:35→20:05)
[2023-05-24] MEDS ORDERED: LIDOCAINE 1%/EPI 1:100000 (20 ML MULTI DOSE VIAL) ONE (09:13)
[2023-05-24] MEDS ORDERED: MIDAZOLAM HCL 2 MG/2 ML SINGLE DOSE VIAL ONE (10:26)
[2023-05-24] MEDS ORDERED: FENTANYL CITRATE/PF 50 MCG/ML VIAL ONE (10:27)
[2023-05-24] MEDS ORDERED: SODIUM CHLORIDE 500 ML IV SCH (10:30)
[2023-05-24] MEDS ORDERED: MIDAZOLAM HCL 2 MG/2 ML SINGLE DOSE VIAL IVPUSH ONE (10:40)
[2023-05-24] MEDS ORDERED: FENTANYL CITRATE/PF 50 MCG/ML VIAL IVPUSH ONE (10:40)
[2023-05-24] MEDS: PANTOPRAZOLE 40 MG TABLET PO SCH (11:56)
[2023-05-24] MEDS: methylPREDNISolone NA SUCC 40 MG/1 ML VIAL IVPUSH SCH (11:56)
[2023-05-24] MEDS: ASPIRIN 81 MG CHEWABLE TABLETS PO SCH (11:57)
[2023-05-24] MEDS: CARVEDILOL 6.25 MG TABLET (FP) PO SCH ×2 (11:57→21:19)
[2023-05-24] MEDS: HEPARIN NA (PORCINE) 5,000 UNITS/ML 1ML VIAL SQ SCH ×2 (11:57→21:19)
[2023-05-24] MEDS: CEFTRIAXONE 1 GM in DEXTROSE 5%-WATER - 50 ML IVPB SCH (11:57)
[2023-05-24] MEDS: SODIUM BICARBONATE 650 MG TABLET PO SCH ×2 (11:57→21:19)
[2023-05-24] MEDS: ISOSORBIDE MONONITRATE 30 MG TAB.SR.24H (FP) PO SCH (11:58)
[2023-05-24] MEDS: EZETIMIBE 10 MG TABLET (FP) PO SCH (11:58)
[2023-05-24] MEDS: NIFEdipine E.R. 90 MG TABLET PO SCH (11:58)
[2023-05-24 14:53] LABS: HEMATOCRIT 25.3 % (35.4-49); HEMOGLOBIN 8.3 GM/dL (11.7-16.9); MCH 24.4 pg (25.7-33.7); MCHC 32.9 g/dl (32.0-35.9); MEAN CELL VOLUME 74.1 fl (80-96); MEAN PLT VOLUME 8.6 fl (7.5-11.1); PLATELET COUNT 304 10^3/uL (134-434); RBC 3.41 M/mm3 (4.00-5.60); RDW 17.8 % (11.9-15.9); WHITE BLOOD COUNT 8.5 K/mm3 (4.0-10.0)
[2023-05-24 15:50] LABS: ALBUMIN 2.3 g/dl (3.4-5.0); CO2 19 mmol/L (21-32); GLUCOSE,RANDOM 91 mg/dL (74-106); MAGNESIUM 2.2 mg/dL (1.8-2.4)
[2023-05-24 15:53] LABS: SGPT/ALT 32 U/L (13-61)
[2023-05-24 15:54] LABS: SGOT/AST 26 U/L (15-37)
[2023-05-24 15:58] LABS: ALK PHOS 82 U/L (45-117); ANION GAP 17 mmol/L (4-13); BILIRUBIN,TOTAL 0.2 mg/dL (0.2-1); BLOOD UREA NITROGEN 128.4 mg/dL (7-18); CALCIUM 6.5 mg/dL (8.5-10.1); CHLORIDE 93 mmol/L (98-107); CREATININE 11.5 mg/dL (0.55-1.3); POTASSIUM 4.2 mmol/L (3.5-5.1); SODIUM 130 mmol/L (136-145); TOT PROT 5.7 g/dl (6.4-8.2)
[2023-05-24 16:42] LABS: PHOSPHOROUS 8.8 mg/dL (2.5-4.9)
[2023-05-24] MEDS: ATORVASTATIN CA 80 MG TABLET (FP) PO SCH (21:19)
[2023-05-25] MEDS: INSULIN (LEVEMIR) 100 UNITS/ML UNITS SQ SCH (06:03)
[2023-05-25] MEDS: INSULIN (NOVOLOG) ASPART 100 UNITS/ML 10ML VIAL SQ SCH ×3 (06:06→17:00)
[2023-05-25] MEDS: hydrALAZINE HCL 25 MG TABLET (FP) PO SCH ×3 (06:06→21:25)
[2023-05-25] MEDS: INSULIN SLIDING SCALE (NOVOLOG) 1 VIAL SQ SCH ×4 (06:09→21:25)
[2023-05-25] MEDS: ALBUTEROL SO4 2.5/IPRATROPIUM 0.5 INH SOL 3 ML VIAL.NEB. NEB SCH ×4 (08:30→19:35)
[2023-05-25] MEDS: CEFTRIAXONE 1 GM in DEXTROSE 5%-WATER - 50 ML IVPB SCH (10:09)
[2023-05-25] MEDS: methylPREDNISolone NA SUCC 40 MG/1 ML VIAL IVPUSH SCH (10:09)
[2023-05-25] MEDS: HEPARIN NA (PORCINE) 5,000 UNITS/ML 1ML VIAL SQ SCH ×2 (10:09→21:25)
[2023-05-25] MEDS: ISOSORBIDE MONONITRATE 30 MG TAB.SR.24H (FP) PO SCH (10:10)
[2023-05-25] MEDS: EZETIMIBE 10 MG TABLET (FP) PO SCH (10:10)
[2023-05-25] MEDS: NIFEdipine E.R. 90 MG TABLET PO SCH (10:10)
[2023-05-25] MEDS: PANTOPRAZOLE 40 MG TABLET PO SCH (10:10)
[2023-05-25] MEDS: SODIUM BICARBONATE 650 MG TABLET PO SCH ×2 (10:10→21:25)
[2023-05-25] MEDS: ASPIRIN 81 MG CHEWABLE TABLETS PO SCH (10:10)
[2023-05-25] MEDS: CARVEDILOL 6.25 MG TABLET (FP) PO SCH ×2 (10:10→21:25)
[2023-05-25] MEDS ORDERED: SODIUM CHLORIDE 250 ML IV PRN (12:40)
[2023-05-25] MEDS: AMOX TR/POT CLAV 250MG/125MG TABLETS PO SCH (17:34)
[2023-05-25] MEDS: ACETAMINOPHEN 325 MG TABLET (FP) PO PRN (20:06)
[2023-05-25] MEDS: ATORVASTATIN CA 80 MG TABLET (FP) PO SCH (21:25)
[2023-05-26] MEDS: hydrALAZINE HCL 25 MG TABLET (FP) PO SCH ×4 (05:04→21:54)
[2023-05-26] MEDS: INSULIN (LEVEMIR) 100 UNITS/ML UNITS SQ SCH (06:08)
[2023-05-26] MEDS: INSULIN SLIDING SCALE (NOVOLOG) 1 VIAL SQ SCH ×4 (06:09→21:54)
[2023-05-26] MEDS: INSULIN (NOVOLOG) ASPART 100 UNITS/ML 10ML VIAL SQ SCH ×3 (06:09→16:50)
[2023-05-26] MEDS: ALBUTEROL SO4 2.5/IPRATROPIUM 0.5 INH SOL 3 ML VIAL.NEB. NEB SCH ×4 (07:57→20:05)
[2023-05-26 09:40] LABS: HEMATOCRIT 24.1 % (35.4-49); HEMOGLOBIN 7.9 GM/dL (11.7-16.9); MCH 24.2 pg (25.7-33.7); MCHC 32.8 g/dl (32.0-35.9); MEAN CELL VOLUME 73.8 fl (80-96); MEAN PLT VOLUME 8.5 fl (7.5-11.1); PLATELET COUNT 284 10^3/uL (134-434); RBC 3.27 M/mm3 (4.00-5.60); WHITE BLOOD COUNT 7.3 K/mm3 (4.0-10.0)
[2023-05-26] MEDS: AMOX TR/POT CLAV 250MG/125MG TABLETS PO SCH (10:18)
[2023-05-26] MEDS: SODIUM BICARBONATE 650 MG TABLET PO SCH ×2 (10:18→21:54)
[2023-05-26] MEDS: ASPIRIN 81 MG CHEWABLE TABLETS PO SCH (10:18)
[2023-05-26] MEDS: EZETIMIBE 10 MG TABLET (FP) PO SCH (10:19)
[2023-05-26] MEDS: CARVEDILOL 6.25 MG TABLET (FP) PO SCH ×2 (10:19→21:54)
[2023-05-26] MEDS: methylPREDNISolone NA SUCC 40 MG/1 ML VIAL IVPUSH SCH (10:19)
[2023-05-26] MEDS: HEPARIN NA (PORCINE) 5,000 UNITS/ML 1ML VIAL SQ SCH ×2 (10:19→21:54)
[2023-05-26] MEDS: ISOSORBIDE MONONITRATE 30 MG TAB.SR.24H (FP) PO SCH (10:19)
[2023-05-26] MEDS: PANTOPRAZOLE 40 MG TABLET PO SCH (10:19)
[2023-05-26] MEDS: NIFEdipine E.R. 90 MG TABLET PO SCH (10:19)
[2023-05-26 10:39] LABS: ANISOCYTOSIS 2+; MACROCYTOSIS 0; OVALOCYTE 1+; TEAR DROP CELLS 0
[2023-05-26] MEDS ORDERED: EPOETIN ALFA-EPBX 4,000 UNIT/ML VIAL IVPUSH ONE (12:40)
[2023-05-26] MEDS ORDERED: HEPARIN NA (PORCINE) 5,000 UNITS/ML 1ML VIAL IVPUSH ONE (12:40)
[2023-05-26 14:25] LABS: CHLORIDE 97 mmol/L (98-107); SODIUM 133 mmol/L (136-145)
[2023-05-26 14:28] LABS: ALBUMIN 2.2 g/dl (3.4-5.0); ANION GAP 14 mmol/L (4-13); CO2 22 mmol/L (21-32); GLUCOSE,RANDOM 223 mg/dL (74-106)
[2023-05-26 14:31] LABS: SGOT/AST 22 U/L (15-37); SGPT/ALT 33 U/L (13-61)
[2023-05-26 14:32] LABS: BILIRUBIN,TOTAL 0.2 mg/dL (0.2-1); TOT PROT 5.4 g/dl (6.4-8.2)
[2023-05-26 14:34] LABS: ALK PHOS 75 U/L (45-117)
[2023-05-26 14:37] LABS: BLOOD UREA NITROGEN 105.1 mg/dL (7-18); CALCIUM 6.4 mg/dL (8.5-10.1); CREATININE 9.4 mg/dL (0.55-1.3)
[2023-05-26] MEDS: ATORVASTATIN CA 80 MG TABLET (FP) PO SCH (21:54)
[2023-05-26] MEDS: ACETAMINOPHEN 325 MG TABLET (FP) PO PRN (23:41)
[2023-05-27] MEDS: hydrALAZINE HCL 25 MG TABLET (FP) PO SCH ×2 (06:17→15:55)
[2023-05-27] MEDS: INSULIN (LEVEMIR) 100 UNITS/ML UNITS SQ SCH (06:22)
[2023-05-27] MEDS: INSULIN (NOVOLOG) ASPART 100 UNITS/ML 10ML VIAL SQ SCH ×3 (06:23→16:32)
[2023-05-27] MEDS: INSULIN SLIDING SCALE (NOVOLOG) 1 VIAL SQ SCH ×3 (06:23→16:32)
[2023-05-27] MEDS: ALBUTEROL SO4 2.5/IPRATROPIUM 0.5 INH SOL 3 ML VIAL.NEB. NEB SCH (09:20)
[2023-05-27] MEDS ORDERED: SODIUM CHLORIDE 250 ML IV PRN (09:59)
[2023-05-27] MEDS: methylPREDNISolone NA SUCC 40 MG/1 ML VIAL IVPUSH SCH (10:18)
[2023-05-27] MEDS: ASPIRIN 81 MG CHEWABLE TABLETS PO SCH (10:18)
[2023-05-27] MEDS: SODIUM BICARBONATE 650 MG TABLET PO SCH (10:18)
[2023-05-27] MEDS: EZETIMIBE 10 MG TABLET (FP) PO SCH (10:18)
[2023-05-27] MEDS: HEPARIN NA (PORCINE) 5,000 UNITS/ML 1ML VIAL SQ SCH (10:18)
[2023-05-27] MEDS: PANTOPRAZOLE 40 MG TABLET PO SCH (10:18)
[2023-05-27] MEDS: CARVEDILOL 6.25 MG TABLET (FP) PO SCH (10:18)
[2023-05-27] MEDS: NIFEdipine E.R. 90 MG TABLET PO SCH (10:19)
[2023-05-27] MEDS: AMOX TR/POT CLAV 250MG/125MG TABLETS PO SCH (10:19)
[2023-05-27] MEDS: ISOSORBIDE MONONITRATE 30 MG TAB.SR.24H (FP) PO SCH (10:19)
[2023-05-27 12:36] VITALS: RESP 18
[2023-05-27 15:55] VITALS: BP 115/60; PULSE 87; TEMP 97.7
[2023-05-28] MEDS ORDERED: EPOETIN ALFA-EPBX 10,000 UNIT/ML VIAL SQ ONE (09:59)
== END 2023-05-27 17:30 | disposition home or self-care (01) | DRG 193 ==
LOC: JER 01:33 → JERBED 06:49 → J4S 18:42 → JERBED 18:42 → J4S 19:11
PROVIDERS: ADMIT Internal Medicine; ATTEND Internal Medicine
PROC: 5A1D70Z Performance of Urinary Filtration, Intermittent, Less than 6 Hours Per Day (ICD-10-PCS; principal; 2023-05-24)
PROC: 05HM33Z Insertion of Infusion Device into Right Internal Jugular Vein, Percutaneous Approach (ICD-10-PCS; 2023-05-24)
PROC: B513ZZA Fluoroscopy of Right Jugular Veins, Guidance (ICD-10-PCS; 2023-05-24)
PROC: 5A1D70Z Performance of Urinary Filtration, Intermittent, Less than 6 Hours Per Day (ICD-10-PCS; 2023-05-26)
DX: J12.1 Respiratory syncytial virus pneumonia (principal); N18.6 End stage renal disease; E87.1 Hypo-osmolality and hyponatremia; I13.0 Hypertensive heart and chronic kidney disease with heart failure and stage 1 through stage 4 chronic kidney disease, or unspecified chronic kidney disease; N17.9 Acute kidney failure, unspecified; I50.32 Chronic diastolic (congestive) heart failure; J98.01 Acute bronchospasm; Z86.718 Personal history of other venous thrombosis and embolism; E78.5 Hyperlipidemia, unspecified; G40.909 Epilepsy, unspecified, not intractable, without status epilepticus; E11.65 Type 2 diabetes mellitus with hyperglycemia; E11.22 Type 2 diabetes mellitus with diabetic chronic kidney disease; N18.9 Chronic kidney disease, unspecified; D64.9 Anemia, unspecified; E83.51 Hypocalcemia; E88.09 Other disorders of plasma-protein metabolism, not elsewhere classified; Z99.2 Dependence on renal dialysis
CPT/HCPCS: 0241U-QW; 36415; 36558; 71045-TC-FY; 71046-TC-FY; 71275-TC; 74176-TC; 80053; 80061; 82010; 82330; 82803; 82962; 83036; 83690; 83735; 83880; 84100; 84478; 84484; 85025; 85027; 85379; 85610; 85730; 86704; 86803; 87340; 87517; 87807; 93005; 93010; 93306-TC; 93990-TC; 94640; 94761; 99285-25; J1644

== ENCOUNTER 2023-08-29 16:02 | Observation (INO) | payer OTHER ==
[2023-08-29 16:40] VITALS: BMI 22.1
[2023-08-29 17:23] LABS: BASO % 0.2 % (0-2.0); EOS % 1.5 % (0-4.5); HEMOGLOBIN 14.9 GM/dL (11.7-16.9); LYMPH % 6.9 % (8-40); MCH 28.4 pg (25.7-33.7); MEAN CELL VOLUME 85.9 fl (80-96); MEAN PLT VOLUME 8.9 fl (7.5-11.1); NEUT % 87.4 % (42.8-82.8); PLATELET COUNT 187 10^3/uL (134-434); RBC 5.24 M/mm3 (4.00-5.60); RDW 16.1 % (11.9-15.9); WHITE BLOOD COUNT 10.6 K/mm3 (4.0-10.0)
[2023-08-29 17:28] LABS: INR 0.9 (0.83-1.09); PROTHROMBIN TIME (PATIENT) 10.4 SEC (9.7-13.0)
[2023-08-29 17:31] LABS: ACTIVATED PTT 38.7 SECONDS (25.2-36.5)
[2023-08-29 17:42] LABS: POTASSIUM 5.3 mmol/L (3.5-5.1)
[2023-08-29 17:45] LABS: ALBUMIN 3.6 g/dl (3.4-5.0); BLOOD UREA NITROGEN 49.2 mg/dL (7-18); CALCIUM 9.5 mg/dL (8.5-10.1)
[2023-08-29] MEDS ORDERED: hydrALAZINE HCL 25 MG TABLET (FP) ONE (17:46)
[2023-08-29 17:48] LABS: CREATININE 5.5 mg/dL (0.55-1.3); PHOSPHOROUS 3.8 mg/dL (2.5-4.9)
[2023-08-29] MEDS ORDERED: ACETAMINOPHEN INJECTION 100 ML IVPB ONE (17:48)
[2023-08-29 17:51] LABS: BILIRUBIN,TOTAL 0.3 mg/dL (0.2-1); TOT PROT 6.8 g/dl (6.4-8.2)
[2023-08-29] MEDS: ACETAMINOPHEN 1000 MG/100 ML BAG IVPB ONE (18:01)
[2023-08-29] MEDS: hydrALAZINE HCL 25 MG TABLET (FP) PO ONE (18:01)
[2023-08-29] MEDS ORDERED: ISOSORBIDE MONONITRATE 30 MG TAB.SR.24H (FP) PO ONE (20:07)
[2023-08-29] MEDS: ISOSORBIDE MONONITRATE 30 MG TAB.SR.24H (FP) PO ONE (20:12)
[2023-08-29 22:27] LABS: EPI CELLS 13 /uL (0-25.1); HYALINE CASTS 1 /uL (0-3.1); PH,URINE 6.5 (5.0-8.0); URINE APPEARANCE CLEAR; URINE BACTERIA 21 /uL (0-1359); URINE BILIRUBIN NEGATIVE (NEGATIVE); URINE COLOR YELLOW; URINE GLUCOSE (UA) 2+ (NEGATIVE); URINE KETONE NEGATIVE (NEGATIVE); URINE LEUK ESTERASE NEGATIVE (NEGATIVE); URINE NITRITE NEGATIVE (NEGATIVE); URINE PROTEIN 4+ (NEGATIVE); URINE RBC 30 /uL (0-23.9); URINE UROBILINOGEN 0.2 mg/dL (0.2-1.0); URINE WBC 20 /uL (0-25.8)
[2023-08-30 02:15] VITALS: RESP 16
[2023-08-30 05:39] VITALS: PULSE 77
[2023-08-30] MEDS ORDERED: hydrALAZINE HCL 25 MG TABLET (FP) ONE (06:04)
[2023-08-30] MEDS ORDERED: ACETAMINOPHEN 325 MG TABLET (FP) ONE (06:04)
[2023-08-30] MEDS: ACETAMINOPHEN 325 MG TABLET (FP) PO ONE (06:08)
[2023-08-30] MEDS: hydrALAZINE HCL 25 MG TABLET (FP) PO SCH (06:09)
[2023-08-30 07:35] LABS: HEMOGLOBIN 12.7 GM/dL (11.7-16.9); MCH 28.2 pg (25.7-33.7); MCHC 32.6 g/dl (32.0-35.9); MEAN CELL VOLUME 86.5 fl (80-96); MEAN PLT VOLUME 9.2 fl (7.5-11.1); PLATELET COUNT 151 10^3/uL (134-434); RBC 4.51 M/mm3 (4.00-5.60); RDW 15.2 % (11.9-15.9); WHITE BLOOD COUNT 5.7 K/mm3 (4.0-10.0)
[2023-08-30 07:49] LABS: POTASSIUM 4.3 mmol/L (3.5-5.1)
[2023-08-30 07:53] LABS: BLOOD UREA NITROGEN 56.4 mg/dL (7-18)
[2023-08-30 07:56] LABS: CALCIUM 8.2 mg/dL (8.5-10.1); CREATININE 5.8 mg/dL (0.55-1.3); MAGNESIUM 1.9 mg/dL (1.8-2.4); PHOSPHOROUS 3.8 mg/dL (2.5-4.9)
[2023-08-30 08:16] VITALS: BP 170/76; TEMP 97.8
[2023-08-30] MEDS ORDERED: ENOXAPARIN NA (PORCINE) 40 MG/0.4 ML DISP.SYRIN SQ SCH (10:00)
[2023-08-30] MEDS: NIFEdipine E.R. 90 MG TABLET PO SCH (11:00)
[2023-08-30] MEDS: ASPIRIN 81 MG CHEWABLE TABLETS PO SCH (11:00)
[2023-08-30] MEDS: ISOSORBIDE MONONITRATE 30 MG TAB.SR.24H (FP) PO SCH (11:00)
[2023-08-30] MEDS: PANTOPRAZOLE 40 MG TABLET PO SCH (11:00)
[2023-08-30] MEDS: CARVEDILOL 6.25 MG TABLET (FP) PO SCH (11:00)
[2023-08-30] MEDS ORDERED: ASPIRIN 81 MG CHEWABLE TABLETS ONE (11:03)
[2023-08-30] MEDS ORDERED: ISOSORBIDE MONONITRATE 30 MG TAB.SR.24H (FP) PO ONE (11:03)
[2023-08-30] MEDS ORDERED: PANTOPRAZOLE 40 MG TABLET PO ONE (11:03)
[2023-08-30] MEDS ORDERED: CARVEDILOL 6.25 MG TABLET (FP) ONE (11:04)
[2023-08-30] MEDS ORDERED: INSULIN REGULAR HUMAN 100 UNITS/ML *VIAL ONE (15:02)
[2023-08-30] MEDS: INSULIN ASPART SLIDING SCALE (NOVOLOG) 1 VIAL SQ SCH (15:29)
[2023-08-30] MEDS ORDERED: ATORVASTATIN CA 40 MG TABLET (FP) PO SCH (22:00)
== END 2023-08-30 19:00 | disposition home or self-care (01) ==
LOC: JER 16:02 → JERBED 20:09
PROVIDERS: ADMIT Internal Medicine; ATTEND Internal Medicine
PROC: 3E033NZ Introduction of Analgesics, Hypnotics, Sedatives into Peripheral Vein, Percutaneous Approach (ICD-10-PCS; principal; 2023-08-29)
PROC: 3E013VG Introduction of Insulin into Subcutaneous Tissue, Percutaneous Approach (ICD-10-PCS; 2023-08-29)
DX: E11.649 Type 2 diabetes mellitus with hypoglycemia without coma (principal); E11.22 Type 2 diabetes mellitus with diabetic chronic kidney disease; Z99.2 Dependence on renal dialysis; I12.0 Hypertensive chronic kidney disease with stage 5 chronic kidney disease or end stage renal disease; N18.6 End stage renal disease; R53.1 Weakness; R42 Dizziness and giddiness
CPT/HCPCS: 0241U-QW; 36415; 70450-TC; 71045-TC-FY; 72125-TC; 72170-TC-FY; 80048; 80053; 81003; 82962; 83735; 84100; 84484; 85025; 85027; 85610; 85730; 87086; 93005; 93010; 99285-25; G0378; J0131